=== PATIENT | male | born 1960 | race Caucasian/White ===

== ENCOUNTER → 2016-06-10 | Outpatient (CLI) | payer OTHER ==
[~2016-06-10] MED LIST: ALBU18002 INH; ALBU2SYP9; ASPCH81X PO; ASPEC81 PO; ASPI81TA28 PO; ATV/1 PO; DRGTP12; FENT75DI2; IBUP-1459 PO; NICO14DI9 TOP; ONDA8TAB12 PO; ONDA8TAB6 PO; Proair INH; SERT25TA PO; SPRIN INH; SPRIN/30 INH; fentanyl patch
--- NOTE | 2016-06-10 13:06 | DIAGNOSTIC IMAGING REPORT ---
PET/CT SKULL-THIGH CLINICAL HISTORY: Glottic neoplasm COMPARISON STUDY: CT scan of the neck dated 05/20/2016 FINDINGS: Within the neck, there is indwelling tracheostomy tube. There is intensely FDG avid glottic mass with an SUV maximum of 14.1. This involves the right vocal cord and crosses the midline. There is superior extent to the level of the right piriform sinus. The mass is estimated to measure approximately 3.5 cm transversely. There are no FDG avid cervical lymph nodes. There is a nonpathologically enlarged right paratracheal lymph node with SUV maximum of 2.1. There is pulmonary emphysema. There are bilateral FDG avid pulmonary airspace opacities suspicious for pneumonia. Wispy airspace opacities are also present within the lingula right middle lobe and right upper lobe. There are no FDG avid hepatic masses. There is no FDG avid adenopathy within the abdomen or pelvis. There is physiologic urinary tract and bowel activity. IMPRESSION: 1. Large glottic mass. This involves the right vocal cord with extension across the midline. There is also extension superiorly to the level the right piriform sinus. The mass intensely FDG avid with SUV maximum of 14.1. This is consistent with the patient's known primary malignancy 2. No definite evidence of pathologic adenopathy 3. Bilateral pulmonary airspace opacities. These are FDG avid. The appearance is suggestive of a bilateral pneumonia Electronically signed by: Ayden Flanagan M.D. 06/10/2016 1:05 PM Dictated Date/Time: 06/10/2016 12:53 PM
== END | disposition home or self-care (01) ==
LOC: C.PET 09:33
PROVIDERS: ATTEND Radiology Radiation Oncology
DX: C32.0 Malignant neoplasm of glottis (principal)

== ENCOUNTER → 2016-06-19 | Day surgery (SDC) | payer OTHER ==
[~2016-06-19] VITALS: Ht 175.3 cm; Wt 63.6 kg
[~2016-06-19] MED LIST changes: -ASPEC81 PO; +CEFAZOLIN 1000MG/55 ML D5W IV SCH; +CEFAZOLIN IV 1,000 MG in DEXTROSE 5% 50ML 50 ML IV SCH; +FENTANYL CITRATE INJ 50 MCG/1 ML 2 ML VIAL ONE; +LIDOCAINE HCL 2% 2 ML VIAL (20MG/ML) ONE; +MIDAZOLAM HCL 1 MG/ML 2ML VIAL ONE; +PROPOFOL IV EMULSION 10 MG/ML 20 ML VIAL IV ONE; -Proair INH; +SODIUM CHLORIDE 0.9% 500ML 500 ML IV ONE; -SPRIN INH
[2016-06-19 10:40] VITALS: Ht 175.3 cm; Wt 63.6 kg
--- NOTE | 2016-06-19 10:52 | Endo History and Physical ---
History & Physical Date of Service: Jun 19, 2016. 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 Past Surgical History Hx Cardiac Surgery: No Hx Internal Defibrillator: No Hx Pacemaker: No Hx Abdominal Surgery: Yes (APPY) Hx of Implantable Prosthesis: No Hx Post-Op Nausea and Vomiting: No Hx Cancer Surgery: No Hx Thoracic Surgery: No Hx Orthopedic: No Hx Urinary Tract Surgery: No Family History Colon CA Social History Smoking Status: Heavy Tobacco Smoker Hx Substance Use: No Hx Alcohol Use: Yes (8-10 beers/day>HAS NOT HAD ANY SINCE 05/20/2016) Allergies Coded Allergies: No Known Allergies (Unverified , 06/13/16) Current Medications Reported Home Medications Medications Dose Route/Sig Max Daily Dose Days Date Category Ativan (Lorazepam) 1 Mg Tab 1 Mg PO DIRECTED PRN 06/13/16 Reported Proair Respiclick (Albuterol Sulfate) 108 Mcg/Act Aer 1-2 Puff INH Q4H PRN 06/13/16 Reported Aspirin Chewable (Aspirin) 81 Mg Chew 81 Mg PO QAM 06/13/16 Reported Spiriva Handihaler (Tiotropium [place]) 30 Puff/540 Mcg Aerp 1 Cap INH QAM 06/13/16 Reported Nicotine 14 Mg/24 Hr Dis 1 Patch TOP DAILY 28 06/13/16 Reported Vital Signs Weight (Kilograms): 63.64 Height (Feet): 5 Height (Inches): 9 Physical Exam General Appearance: no apparent distress Respiratory/Chest: Auscultation: breath sounds normal (with some rhonchi) Cardiovascular: Heart Auscultation: RRR Abdomen: Inspection & Palpation: soft, no masses Assessment and Plan stable for EGD with possible PEG
--- NOTE | 2016-06-19 12:01 | Discharge Instructions ---
Endoscopy Patient Instructions Date / Procedure(s) Performed Jun 19, 2016. EGD Allergy Information Coded Allergies: No Known Allergies (Unverified , 06/13/16) Discharge Date / Findings Jun 19, 2016. S/P PEG placement. Patient will contact nutrition for tube feed instructions. Patient will follow up with Papo Encarnacion to check PEG site in about a week, sooner if need be. Provider Instructions Activity Restrictions - No exercising or heavy lifting for 24 hours. - Do not drink alcohol the day of the procedure. - Do not drive a car or operate machinery until the day after the procedure. - Do not make any important decisions or sign important papers in 24 hours after the procedure. Following Day: - Return to full activity which may include returning to work/school. Diet Start your diet with liquids and light foods (jello, soup, juice, toast). Then eat your usual diet if not nauseated. Treatment For Common After Affects For mild abdominal pain, bloating, or excessive gas: - Rest - Eat lightly - Lie on right side Follow-Up Information Follow-up with Dr. Tera Floyd as scheduled Anesthesia Information What You Should Know You have had a procedure that required some medicine to reduce anxiety and discomfort. This treatment is called moderate sedation. After receiving the treatment, you may be sleepy, but you will be able to breathe on your own. The effects of the treatment may last for several hours. Follow these instructions along with Activity/Diet recommendations noted above: * Do NOT do anything where dizziness or clumsiness would be dangerous. * Rest quietly at home today, then you can be up and about tomorrow. * Have a responsible person stay with you the rest of today. * You may have had an I.V. today. If so, you may take the dressing off later today. Recommendations Call your doctor if: * Trouble breathing * Continuous vomiting for more than 24 hours * Temperature above 101 degrees * Severe abdominal pain or bloating * Pain not relieved by pain medicine ordered * There is increased drainage or redness from any incision * A large amount of rectal bleeding greater than 2-3 tablespoons. (If you had a polyp/s removed or have hemorrhoids, a small amount of blood - from the rectum is to be expected.) * You have any unanswered questions or concerns. IN THE EVENT OF A SERIOUS EMERGENCY, GO TO THE NEAREST EMERGENCY ROOM Your discharge instructions were prepared by provider Valdez Lima. Patient Instructions Signature Page Gordo Lucas Patient (or Guardian) Signature/Date: I have read and understand the instructions given to me by my caregivers. Caregiver/RN/Doctor Signature/Date: The above-named patient and/or guardian has received patient instructions on this date. + Original Patient Signature Page (only) stays with chart. Please make copy for patient.
--- NOTE | 2016-06-19 12:03 | GI REPORT ---
Procedure Date: 06/19/2016 11:18 AM Procedure: Upper GI endoscopy Indications: Dysphagia, Place PEG due to feeding difficulties secondary to laryngeal tumor Medicines: See the Anesthesia note for documentation of the administered medications, Ancef 1000 mg IV Complications: No immediate complications. Estimated Blood Loss: Estimated blood loss was minimal. Procedure: Pre-Anesthesia Assessment: - Prior to the procedure, a History and Physical was performed, and patient medications, allergies and sensitivities were reviewed. The patient's tolerance of previous anesthesia was reviewed. - The risks and benefits of the procedure and the sedation options and risks were discussed with the patient. All questions were answered and informed consent was obtained. - Patient identification and proposed procedure were verified prior to the procedure by the physician and the nurse. The procedure was verified in the pre-procedure area. - Pre-procedure physical examination revealed no contraindications to sedation. - After reviewing the risks and benefits, the patient was deemed in satisfactory condition to undergo the procedure. After obtaining informed consent, the endoscope was passed under direct vision. Throughout the procedure, the patient's blood pressure, pulse, and oxygen saturations were monitored continuously. The scope was introduced through the mouth, and advanced to the third part of duodenum. The upper GI endoscopy was accomplished without difficulty. The patient tolerated the procedure well. Findings: The esophagus was normal. The entire examined stomach was normal. The patient was placed in the supine position for PEG placement. The stomach was insufflated to appose gastric and abdominal holman. With the assistance of REUBEN Jesus, a site was located in the body of the stomach with excellent transillumination and manual external pressure for placement. The abdominal wall was marked and prepped in a sterile manner. The area was anesthetized with 3 mL of 1% lidocaine. The trocar needle was introduced through the abdominal wall and into the stomach under direct endoscopic view. A snare was introduced through the endoscope and opened in the gastric lumen. The guide wire was passed through the trocar and into the open snare. The snare was closed around the guide wire. The endoscope and snare were removed, pulling the wire out through the mouth. A skin incision was made at the site of needle insertion. The externally removable 20 Fr Nilesh-Cook gastrostomy tube was lubricated. The G-tube was tied to the guide wire and pulled through the mouth and into the stomach. The trocar needle was removed, and the gastrostomy tube was pulled out from the stomach through the skin. The external bumper was attached to the gastrostomy tube, and the tube was cut to remove the guide wire. The final position of the gastrostomy tube was confirmed by skin marking noted to be 2.5 cm at the external bumper. The final tension and compression of the abdominal wall by the PEG tube and external bumper were checked and revealed that the bumper was moderately tight and mildly deforming the skin. The feeding tube was capped, and the tube site cleaned and dressed. Estimated blood loss was minimal. The examined duodenum was normal. The cardia and gastric fundus were normal on retroflexion. Impression: - Normal esophagus. - Normal stomach. - Normal examined duodenum. - An externally removable 20 F PEG placement was successfully completed. - No specimens collected. Recommendation: - Please follow the post-PEG recommendations including: NPO for 4 hours than clears till tomorrow am than advance food and medications per primary care provider or nutrition, clean site with soap and water daily and dry thoroughly and may use PEG tomorrow for feedings. - Follow up with Papo Encarnacion to check PEG site in about 1 week. Valdez Lima M.D. Valdez Lima MD 06/19/2016 12:02:55 PM This report has been signed electronically. Note Initiated On: 06/19/2016 11:18 AM
[2016-06-19 12:33] VITALS: BP 128/82; PULSE 64; O2SAT 96
--- NOTE | 2016-06-19 13:31 | Anesthesiology Progress Note ---
Anesthesia Post Op Note Date & Time Jun 19, 2016 at 13:30 Vital Signs Pain Intensity: 3 Vital Signs Past 12 Hours Date Time Temp Pulse Resp B/P Pulse Ox O2 Delivery O2 Flow Rate FiO2 06/19/16 12:33 64 20 128/82 96 Room Air 06/19/16 12:20 62 20 126/80 100 Room Air 06/19/16 12:05 64 20 130/75 100 Nasal Cannula 2 06/19/16 10:55 36.6 62 20 129/77 98 Room Air Notes Mental Status: alert / awake / arousable, participated in evaluation Pt Amnestic to Procedure: Yes Nausea / Vomiting: adequately controlled Pain: adequately controlled Airway Patency, RR, SpO2: stable & adequate BP & HR: stable & adequate Hydration State: stable & adequate Anesthetic Complications: no major complications apparent
== END | disposition home or self-care (01) ==
LOC: C.GI 10:21
PROVIDERS: ATTEND Internal Medicine Gastroenterology
DX: R13.10 Dysphagia, unspecified (principal); C32.9 Malignant neoplasm of larynx, unspecified; R63.3 Feeding difficulties; Z90.49 Acquired absence of other specified parts of digestive tract; Z80.0 Family history of malignant neoplasm of digestive organs; F17.210 Nicotine dependence, cigarettes, uncomplicated

== ENCOUNTER → 2016-07-03 | Outpatient (CLI) | payer OTHER ==
[~2016-07-03] MED LIST changes: -CEFAZOLIN 1000MG/55 ML D5W IV SCH; -CEFAZOLIN IV 1,000 MG in DEXTROSE 5% 50ML 50 ML IV SCH; -FENTANYL CITRATE INJ 50 MCG/1 ML 2 ML VIAL ONE; -LIDOCAINE HCL 2% 2 ML VIAL (20MG/ML) ONE; -MIDAZOLAM HCL 1 MG/ML 2ML VIAL ONE; -PROPOFOL IV EMULSION 10 MG/ML 20 ML VIAL IV ONE; -SODIUM CHLORIDE 0.9% 500ML 500 ML IV ONE
--- NOTE | 2016-07-03 14:26 | DIAGNOSTIC IMAGING REPORT ---
BILATERAL CAROTID DOPPLER STUDY HISTORY: Neoplasm MALIGNANT NEOPLASM GLOTTIS COMPARISON: None. TECHNIQUE: Real-time, grayscale, and color Doppler sonography of the carotid arteries was performed. Imaging reviewed in the transverse and longitudinal planes. All measurements were calculated based on NASCET criteria. FINDINGS: Antegrade flow is seen in the bilateral vertebral arteries. The brachial pressures are hemodynamically similar. Mild plaque formation bilaterally The peak systolic velocity within the right ICA is 103. The right systolic ratio is 0.89. The peak systolic velocity within the left ICA is 117. The left systolic ratio is 0.98. IMPRESSION: No hemodynamically significant stenosis seen within the carotid arteries. Mild plaque dimension Electronically signed by: Aime Fu M.D. 07/03/2016 2:24 PM Dictated Date/Time: 07/03/2016 2:23 PM
== END | disposition home or self-care (01) ==
LOC: C.ULTR 13:37
PROVIDERS: ATTEND Radiology Radiation Oncology
DX: C32.0 Malignant neoplasm of glottis (principal)

== ENCOUNTER → 2016-09-11 | Outpatient (CLI) | payer OTHER ==
[~2016-09-11] MED LIST changes: -ALBU18002 INH; -ASPCH81X PO; -FENT75DI2; -NICO14DI9 TOP; -ONDA8TAB12 PO; -SPRIN/30 INH; -fentanyl patch
[2016-09-11 14:33] VITALS: BP 119/67; PULSE 68; TEMP 36.7; O2SAT 99
--- NOTE | 2016-09-11 15:48 | Radiation Oncology Follow-Up ---
Radiation Oncology Follow-Up Date of Visit Sep 11, 2016. 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 Chemotherapy comprised of Cisplatin Last Edited By: Randa Brock on Aug 23, 2016 11:26 (Randa Brock PA-C) History of Present Illness Mr. Lucas is a 55-year-old gentleman who presented with a long-standing history of throat discomfort and hoarseness of voice. More recently, the patient was seen by a primary care doctor who recommended urgent evaluation and had the patient go to the emergency room at [facility]. The patient had a CT neck on 05/20/2015 which revealed a large right vocal cord mass with extension across the midline and superior extension of the right piriform sinus and subglottic extension and involvement of the thyroid cartilage. No lymphadenopathy. The patient also did have a CT thorax which did show a 11 mm left lower lobe bronchial filling defect most likely representing a mucous plug however neoplasm could appear similar. Dr. Jarvis Garcia from ENT did evaluate the patient and did perform a NPL at bedside which revealed "The flexible fiberoptic laryngoscope was passed through the right nostril. I was easily able to see a massive lesion involving the supraglottic larynx on the right extending deep into the subglottic area. This lesion crossed the midline. There was a very narrow glottic chink. The right vocal cord was fixed. The left vocal cord was mobile." Dr. Garcia is taking the patient to the operating room for placement of elective tracheostomy to protect his airway and will also perform a direct laryngoscopy with biopsy to confirm the diagnosis of head and neck cancer. We are now seeing the patient in consultation to discuss the role of radiation therapy. Overall, the patient is relatively comfortable. He does state he does have a very sore throat. He denies any significant dysphagia. He denies any hemoptysis. He does have some difficulty with the quality of his voice and has been getting more progressively worse. He states she's had about a 15 and 30 pound weight loss over the last several months. He has no other complaints at this point. He underwent a tracheotomy, laryngoscopy and biopsies 05/22/2016. This confirmed the diagnosis of squamous cell carcinoma. He was seen by medical oncology. Decision was to treat with combined radiation and chemotherapy. He then returned to our office And underwent a CT simulation. His radiation was completed 08/15/2016 he received 7000 cGy. The chemotherapy was comprised of cisplatin. (Randa Brock PA-C) Interim History Following the completion of the radiation therapy and chemotherapy he did develop GI symptoms. This caused nausea and vomiting. He had node diarrhea. He did have some weight loss. This persisted over 2 weeks. He had no fever or chills. He continues to have dysphagia. Pain level is 3. He is being followed by speech therapy and has now received a device to use for speech. He is to increase the use of the device by 15 minutes every day. Speech therapy did request home health speech therapy to help assist with using the device. He continues to have difficulty with swallowing liquids he's been instructed to use thickened. He did admit to drinking water without the thickened and did have difficulty. Arrangements of continued for delivery of the nutrition and he uses a PEG tube. His appetite is returning but he continues to have altered taste. He has slight nausea without vomiting. (Randa Brock PA-C) Allergies Coded Allergies: No Known Allergies (Verified , 06/19/16) Home Medications Scheduled Aspirin (Aspirin Ec), 81 MG PO DAILY Sertraline (Zoloft), 1 TAB PO DAILY Scheduled PRN Ibuprofen (Motrin), 400 MG PO Q6H PRN for Pain Miscellaneous Medications Albuterol Sulf (Ventolin) Review of Systems Gastrointestinal: Symptoms: WNL GI Comments: slight nausea at times Oral: Symptoms: No Problems, Scant Saliva/Dry Mouth Other Oral Symptoms: speaking valve placed today, drinks but does not eat Respiratory: Symptoms: WNL, Moist Cough, Productive Cough Sputum Character: Clear sputum Other Respiratory: Coughs out trach to clear throat Urinary: Symptoms: WNL Skin: Symptoms: No Problems Other Skin Symptoms: States sore where trach rubs (Randa Brock PA-C) Physical Exam Vital Signs Date Time Temp Pulse Resp B/P Pulse Ox O2 Delivery O2 Flow Rate FiO2 09/11/16 14:33 36.7 68 16 119/67 99 Fatigue: None General Appearance: no apparent distress Eyes: normal inspection, EOMI ENT: normal ENT inspection, hearing grossly normal Neck: no adenopathy, thyroid normal, + pertinent finding (trach is in place the skin changes from radiation have resolved other than hyperpigmentation) Respiratory/Chest: lungs clear, no respiratory distress, no accessory muscle use Cardiovascular: regular rate, rhythm, no gallop, no murmur Neurologic/Psychiatric: no motor/sensory deficits, alert, normal mood/affect Skin: warm/dry (Randa Brock PA-C) Laboratory Studies Test 06/26/16 15:33 07/08/16 10:15 07/29/16 11:05 08/07/16 14:38 Thyroid Stimulating Hormone (TSH) 1.510 uIu/ml (0.300-4.500) Magnesium Level 1.8 mg/dl (1.8-2.4) 2.7 mg/dl (1.8-2.4) White Blood Count 2.98 K/uL (4.8-10.8) 5.24 K/uL (4.8-10.8) Red Blood Count 2.93 M/uL (4.7-6.1) 2.87 M/uL (4.7-6.1) Hemoglobin 9.9 g/dL (14.0-18.0) 9.1 g/dL (14.0-18.0) Hematocrit 27.4 % (42-52) 25.6 % (42-52) Mean Corpuscular Volume 93.5 fL (80-100) 89.2 fL (80-100) Mean Corpuscular Hemoglobin 33.8 pg (25-34) 31.7 pg (25-34) Mean Corpuscular Hemoglobin Concent 36.1 g/dl (32-36) 35.5 g/dl (32-36) Platelet Count 212 K/uL (130-400) 169 K/uL (130-400) Mean Platelet Volume 8.3 fL (7.4-10.4) 8.4 fL (7.4-10.4) Neutrophils (%) (Auto) 59.5 % 74.9 % Lymphocytes (%) (Auto) 25.8 % 18.9 % Monocytes (%) (Auto) 9.7 % 5.0 % Eosinophils (%) (Auto) 4.0 % 0.4 % Basophils (%) (Auto) 0.7 % 0.6 % Neutrophils # (Auto) 1.77 K/uL (1.4-6.5) 3.93 K/uL (1.4-6.5) Lymphocytes # (Auto) 0.77 K/uL (1.2-3.4) 0.99 K/uL (1.2-3.4) Monocytes # (Auto) 0.29 K/uL (0.11-0.59) 0.26 K/uL (0.11-0.59) Eosinophils # (Auto) 0.12 K/uL (0-0.5) 0.02 K/uL (0-0.5) Basophils # (Auto) 0.02 K/uL (0-0.2) 0.03 K/uL (0-0.2) RDW Standard Deviation 44.8 fL (36.4-46.3) 44.0 fL (36.4-46.3) RDW Coefficient of Variation 14.0 % (11.5-14.5) 14.2 % (11.5-14.5) Immature Granulocyte % (Auto) 0.3 % 0.2 % Immature Granulocyte # (Auto) 0.01 K/uL (0.00-0.02) 0.01 K/uL (0.00-0.02) Sodium Level 140 mmol/L (136-145) 139 mmol/L (136-145) Potassium Level 3.6 mmol/L (3.5-5.1) 4.0 mmol/L (3.5-5.1) Chloride Level 102 mmol/L (98-107) 101 mmol/L (98-107) Carbon Dioxide Level 29 mmol/L (21-32) 28 mmol/L (21-32) Anion Gap 9.0 mmol/L (3-11) 10.0 mmol/L (3-11) Blood Urea Nitrogen 28 mg/dl (7-18) 67 mg/dl (7-18) Creatinine 1.20 mg/dl (0.60-1.40) 3.70 mg/dl (0.60-1.40) Estimated GFR () 77.9 20.0 Estimated GFR (Non- 67.2 17.2 BUN/Creatinine Ratio 23.4 (10-20) 18.2 (10-20) Random Glucose 78 mg/dl (70-99) 91 mg/dl (70-99) Calcium Level 8.8 mg/dl (8.5-10.1) 8.9 mg/dl (8.5-10.1) Total Bilirubin 0.2 mg/dl (0.2-1) 0.2 mg/dl (0.2-1) Aspartate Amino Transferase (AST) 11 U/L (15-37) 18 U/L (15-37) Alanine Aminotransferase (ALT) 19 U/L (12-78) 26 U/L (12-78) Alkaline Phosphatase 58 U/L (45-117) 73 U/L (45-117) Total Protein 7.4 gm/dl (6.4-8.2) 7.4 gm/dl (6.4-8.2) Albumin 3.8 gm/dl (3.4-5.0) 3.7 gm/dl (3.4-5.0) Globulin 3.6 gm/dl (2.5-4.0) 3.7 gm/dl (2.5-4.0) Albumin/Globulin Ratio 1.1 (0.9-2) 1.0 (0.9-2) (Randa Brcok PA-C) Assessment & Plan Plan: The patient is also seen today by Dr. De Los Santos. I spoke with speech therapist who has recommended that he have home health speech therapy. Neli Najera from patient navigation assisted in discussing with [facility]. The prescription will be written and she will send us in so that he may have home health speech therapy. He will be using his speech device and increasing the use of the device by 15 minutes each day. He will be following up with Dr. Garcia in ENT. Recheck scanning and laboratory studies per medical oncology. We asked him to return to our office in 3 months. (Randa Brock PA-C) I agree with note created by Randa Brock PA-C. I reviewed the patient's chart and information with her. I have examined and evaluated the patient. I reviewed relevant clinical information and answered the patient's and/or family' s questions. (Veeral. De Los Santos MD) Total Time In Follow-Up I spent 20 minutes speaking to the patient performing examination. I spent 15 minutes reviewing information in completing this note. (Randa Brock PA-C) I spent 15 minutes examining and counseling the patient. (Veeral. De Los Santos MD) Copy To Phill Dawkins MD; Jarvis Garcia M.D.; Tyler Floyd MD; Jax Field D.O.
== END | disposition home or self-care (01) ==
LOC: C.ONC 14:20
PROVIDERS: ATTEND Physician Assistant Medical
DX: Z08 Encounter for follow-up examination after completed treatment for malignant neoplasm (principal); Z92.3 Personal history of irradiation; Z85.89 Personal history of malignant neoplasm of other organs and systems

== ENCOUNTER → 2016-10-15 | Outpatient (CLI) | payer OTHER ==
[~2016-10-15] MED LIST changes: -ATV/1 PO; -DRGTP12; -ONDA8TAB6 PO
--- NOTE | 2016-10-15 14:40 | DIAGNOSTIC IMAGING REPORT ---
VIDEO SWALLOW HISTORY: HEAD AND NECK CA C32.0 TECHNIQUE: Video fluoroscopic evaluation of swallowing was performed in the AP and lateral projections by the speech pathology staff. The patient is fed nectar-thick and thin liquid barium, a barium coated wafer, and barium pudding. FLUOROSCOPY TIME: 1.9 minutes. A cine loop was submitted.. COMPARISON STUDY: None. FINDINGS: There is normal hyoid excursion and epiglottic deflection. No significant penetration or aspiration identified. Swallowing function is within normal limits. There is mild cricopharyngeal dysfunction. Mild esophageal dysmotility. IMPRESSION: 1. No aspiration identified. Mild cricopharyngeal dysfunction. 2. Please see the speech pathologist report for detailed findings and recommendations. Electronically signed by: Simone García M.D. 10/15/2016 2:39 PM Dictated Date/Time: 10/15/2016 2:37 PM
--- NOTE | 2016-10-15 16:17 | SWALLOWING EVALUATION ---
HISTORY: This 56 year-old man, from home, was referred for a VFSS at [facility] secondary to being on PEG Tube feeding since laryngeal lesion was found and operation with chemo and radiation May 2016. He states that he is currently seeing a home health PROGRAM DIRECTOR-Ester Polo who has been working with p.o. intake and he is tolerating nectar thick liquids with no difficulty. Pt. reports that he con not consume significant amounts of food secondary to unbearable metallic taste from the chemo and radiation treatments. Currently the patient's diet level is NPO and allowance for soft items with nectar thick liquids however pt. reports that he has been tolerating thins since he does not like the thickened liquids. PROCEDURE: The patient was seen in the Radiology Department of [facility] for the VFSS. Cursory examination of the oral cavity revealed adequate dentition. Movement of the articulators was WNL. Pt. presented with Trach. He had Passy Bethel Valve however chose to occlude instead of using it throughout the study. The patient was seated in a chair and was viewed in both the Anterior-Posterior (A-P) and Lateral planes. Volitional phonation exercises completed in the A-P plane revealed bilateral vocal fold movement and vocal intensity within functional limits. In the lateral plane, the patient was given the following barium-infused boluses: 1 tsp thin barium with oral hold 1x, self presented single cup swallow-thin barium 1x, self presented serial cup swallow 1x. 1 tsp nectar thick barium with oral hold 1x, self presented single cup swallow- nectar thick barium 1x, self presented serial cup swallows 1x. 1 tsp barium pudding-self presented 1x. Cracker with barium paste 1x. In the A-P view, pt was given 1tsp barium pudding with esophageal scan. RESULTS: Oral Phase: Pt. had no labial escape of any food or liquid items presented. Pt. demonstrated a cohesive bolus between tongue and palatal seal. Timely and efficient chewing and mashing was observed with all consistencies as well as brisk tongue motion and complete oral clearance. Initiation of pharyngeal swallow began with bolus head at posterior angle of hyoid excursion. *Overall WFL for oral phase of swallow. Pharyngeal Phase: Soft Palate Elevation was complete for all boluses. Laryngeal elevation was WFL demonstrating complete movement of thyroid cartilage with complete approximation of arytenoids to epiglottic base. Complete Anterior Hyoid excursion was observed. Epiglottic inversion occurred with each item presented. Laryngeal Vestibular closure was complete and no air or barium noted in laryngeal vestibule. Tongue base retraction was noted with all consistencies and tongue base made effective contact with posterior pharyngeal wall throughout study. No pharyngeal residue was observed. NO penetration and NO aspiration was observed during this study. *Overall WFL for pharyngeal phase of the swallow. Esophageal Phase: Opening and closing of the UES was timely and efficient. Upon esophageal scan, PROGRAM DIRECTOR noted esophageal dysmotility with the food items presented. Given pt.s current status of completing PEG tube feedings this is not likely a significant issue however once/if pt. begins to increase p.o. intake he will likely need a GI consult to further evaluate this issue. SUMMARY/RECOMMENDATIONS: Overall pt. presented as WFL for oral pharyngeal stage of the swallow. Recommendin. Allowance for any desired p.o. items 2.Continuation of PEG tube feedings secondary to decreased appetite secondary to metallic taste in mouth from Chemo Therapy. 3. Written instructions given to Pt. for "slippery" foods 4. When/If pt. moves toward more stable p.o. intake that can nutritionally support his caloric needs, GI consult will be needed to further evaluate esophageal dysfunction. All results and recommendations were discussed with the pt. at length and written materials/instructions given to pt. Thank you for referral of this patient. Please contact me at if any additional information is needed.
== END | disposition home or self-care (01) ==
LOC: C.RAD 13:50
PROVIDERS: ATTEND Physician Assistant Medical
DX: C32.0 Malignant neoplasm of glottis (principal)

== ENCOUNTER → 2016-11-27 | Outpatient (CLI) | payer OTHER ==
[~2016-11-27] MED LIST changes: +OPTIRAY 320 IV PRN
[2016-11-27 13:28] LABS: BASO % 0.4 %; BASO ABS # 0.03 K/uL (0-0.2); EOS % 0.8 %; HEMATOCRIT 26.6 % (42-52); IG% 0.9 %; LYMPH % 10.6 %; LYMPH ABS # 0.82 K/uL (1.2-3.4); MEAN CORPUSCULAR HEMOGLOBIN 31.8 pg (25-34); MEAN PLATELET VOLUME 7.8 fL (7.4-10.4); MONO % 10.4 %; NEUT % 76.9 %; PLATELET COUNT 328 K/uL (130-400); WHITE BLOOD COUNT 7.72 K/uL (4.8-10.8)
[2016-11-27 13:29] LABS: MEAN CORPUSCULAR HGB CONC 33.5 g/dl (32-36)
[2016-11-27 13:50] LABS: COMPLETE YES
[2016-11-27 14:00] LABS: ALB/GLOB RATIO 1.1 (0.9-2); ALKALINE PHOSPHATASE 50 U/L (45-117); ALT/SGPT 22 U/L (12-78); AST/SGOT 20 U/L (15-37); BLOOD UREA NITROGEN 31 mg/dl (7-18); BUN/CREATININE RATIO 25.6 (10-20); CALCIUM 9.5 mg/dl (8.5-10.1); CARBON DIOXIDE 26 mmol/L (21-32); CHLORIDE 99 mmol/L (98-107); GLUCOSE 76 mg/dl (70-99); POTASSIUM 4.4 mmol/L (3.5-5.1); SODIUM 133 mmol/L (136-145)
--- NOTE | 2016-11-27 14:26 | DIAGNOSTIC IMAGING REPORT ---
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 COMPARISON STUDY: CT scan of the neck dated 05/20/2016. PET/CT dated 06/10/2016. TECHNIQUE: Following the IV administration of 94 cc of Optiray 320, CT scan of the soft tissues of the neck was performed from the skull base to the upper chest. Images are reviewed in the axial, sagittal, and coronal planes. IV contrast was administered without complication. CT DOSE: 529.43 mGy.cm FINDINGS: Pharynx: The nasopharynx and oropharynx are normal in appearance. There is marked edema identified involving the supraglottic larynx. There is ill-defined soft tissue at the site of the previously characterized mass lesion. The mass lesion itself is difficult to discretely visualize/measure but has likely decreased in size from the 05/20/2016 examination. There is marked narrowing of the supraglottic airway. The remainder of the airway appears clear. A tracheostomy is noted. The vocal cords are markedly edematous, L assessed. There is diffuse infiltration of the parapharyngeal fat bilaterally. Edema is also seen within the surrounding subcutaneous soft tissues. Mild retropharyngeal soft tissue edema is also seen. There is mild edema of the epiglottis. Lymphadenopathy: No pathologically enlarged cervical lymph nodes are seen. Thyroid: Normal in size and attenuation. A central defect in the isthmus is noted at the tracheostomy site. Salivary glands: The parotid and submandibular glands are within normal limits. Brain parenchyma: The visualized brain parenchyma at the skull base is normal in appearance. Vascular structures: The internal carotid arteries and jugular veins are widely patent. The aortic arch demonstrates 4-vessel variant anatomy. Skeletal structures: The skeletal structures are osteopenic. The patient is edentulous. Imaged portions of the calvarium at the skull base are within normal limits. The cervical spine appears intact noting mild spondylotic change. No lytic or blastic lesions are seen. Sinuses and mastoids: The visualized paranasal sinuses are clear. The mastoid air cells are well pneumatized. Orbits: The bony orbits are intact as visualized. Orbital contents are normal in appearance. Upper chest: Emphysema is noted at the lung apices. There is biapical scarring. No upper lobe pulmonary lesions are identified. A tracheostomy is in place. IMPRESSION: 1. There is marked edema and soft tissue infiltration identified in the right supraglottic larynx. The mass lesion seen on 05/20/2016 is not well visualized and likely decreased in size from that time. 2. There is marked parapharyngeal edema, mild retropharyngeal edema, as well as overlying dermal thickening and soft tissue edema. This is likely related to post radiation change. 3. There is significant narrowing of the supraglottic airway. A tracheostomy is new from previous. 4. No pathologically enlarged cervical lymph nodes are identified 5. Emphysema. 6. Additional changes as above. Electronically signed by: Yuniel Zuniga M.D. 11/27/2016 2:25 PM Dictated Date/Time: 11/27/2016 2:12 PM
== END | disposition home or self-care (01) ==
LOC: C.CTS 12:55
PROVIDERS: ATTEND Internal Medicine Hematology & Oncology
DX: C32.8 Malignant neoplasm of overlapping sites of larynx (principal); R60.0 Localized edema; Z93.0 Tracheostomy status; J43.9 Emphysema, unspecified

== ENCOUNTER → 2017-03-26 | Outpatient (CLI) | payer OTHER ==
[~2017-03-26] MED LIST changes: -OPTIRAY 320 IV PRN
[2017-03-26 15:24] VITALS: BP 152/80; PULSE 66; TEMP 36.9; O2SAT 99
--- NOTE | 2017-03-26 16:19 | Radiation Oncology Follow-Up ---
Radiation Oncology Follow-Up Date of Visit Mar 26, 2017. 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 Chemotherapy comprised of Cisplatin Last Edited By: Randa Brock on Aug 23, 2016 11:26 History of Present Illness Mr. Lucas presented with a long-standing history of throat discomfort and hoarseness of voice. More recently, the patient was seen by a primary care doctor who recommended urgent evaluation and had the patient go to the emergency room at [facility]. The patient had a CT neck on 05/20/2015 which revealed a large right vocal cord mass with extension across the midline and superior extension of the right piriform sinus and subglottic extension and involvement of the thyroid cartilage. No lymphadenopathy. The patient also did have a CT thorax which did show a 11 mm left lower lobe bronchial filling defect most likely representing a mucous plug however neoplasm could appear similar. Dr. Jarvis Garcia from ENT did evaluate the patient and did perform a NPL at bedside which revealed "The flexible fiberoptic laryngoscope was passed through the right nostril. I was easily able to see a massive lesion involving the supraglottic larynx on the right extending deep into the subglottic area. This lesion crossed the midline. There was a very narrow glottic chink. The right vocal cord was fixed. The left vocal cord was mobile." Dr. Garcia is taking the patient to the operating room for placement of elective tracheostomy to protect his airway and will also perform a direct laryngoscopy with biopsy to confirm the diagnosis of head and neck cancer. We are now seeing the patient in consultation to discuss the role of radiation therapy. Overall, the patient is relatively comfortable. He does state he does have a very sore throat. He denies any significant dysphagia. He denies any hemoptysis. He does have some difficulty with the quality of his voice and has been getting more progressively worse. He states she's had about a 15 and 30 pound weight loss over the last several months. He has no other complaints at this point. He underwent a tracheotomy, laryngoscopy and biopsies 05/22/2016. This confirmed the diagnosis of squamous cell carcinoma. He was seen by medical oncology. Decision was to treat with combined radiation and chemotherapy. He then returned to our office And underwent a CT simulation. His radiation was completed 08/15/2016 he received 7000 cGy. The chemotherapy was comprised of cisplatin. Interim History His appetite is steadily been improving. He is taking more nutrition by mouth. He only uses 1-2 cans of nutrition per day via PEG tube. He has minimal discomfort of the neck and throat. Previously he had been taking Advil for pain. He has not had to take any Advil over the past few weeks. He is followed in ENT and had an NPL examination 1 month ago. He had a recheck CT of the neck 11/27/2016. This showed marked edema and soft tissue swelling in the right supraglottic larrynx. The mass lesion that was seen 05/20/2016 is not well-visualized and likely decreased in size. There are post radiation changes. Tracheostomy is noted. Allergies Coded Allergies: No Known Allergies (Verified , 06/19/16) Home Medications Scheduled Sertraline (Zoloft), 1 TAB PO DAILY Scheduled PRN Albuterol Sulf (Ventolin), for prn Ibuprofen (Motrin), 400 MG PO Q6H PRN for Pain Review of Systems Gastrointestinal: Symptoms: WNL Oral: Other Oral Symptoms: soreness when swallows ,trach tube inplace Respiratory: Symptoms: SOB With Exertion, Productive Cough Sputum Character: clear occ notes sm amt blood few specks Other Respiratory: trach tube in place Urinary: Symptoms: Nocturia Comments: nocturia 2-3x Skin: Symptoms: Faint Erythema Physical Exam Vital Signs Date Time Temp Pulse Resp B/P (MAP) Pulse Ox O2 Delivery O2 Flow Rate FiO2 03/26/17 15:24 36.9 66 20 152/80 99 Pain: Pain Onset: since started RT Pain Duration: intermet Patient Pain Scale: 0 - 10 Initial Pain Intensity: 5.0 Additional Comments: feels like a tooth ache Fatigue: None General Appearance: no apparent distress, + pertinent finding (tracheostomy tube in placed) Eyes: normal inspection, EOMI ENT: normal ENT inspection, hearing grossly normal, pharynx normal Neck: no adenopathy, thyroid normal Respiratory/Chest: no respiratory distress, no accessory muscle use, + wheezing (mild wheezing bilaterally) Cardiovascular: regular rate, rhythm, no gallop, no murmur Abdomen: non tender Extremities: no pedal edema Neurologic/Psychiatric: no motor/sensory deficits, alert, normal mood/affect Skin: warm/dry Laboratory Studies Test 03/26/17 15:06 White Blood Count 8.69 K/uL (4.8-10.8) Red Blood Count 3.09 M/uL (4.7-6.1) Hemoglobin 9.9 g/dL (14.0-18.0) Hematocrit 29.1 % (42-52) Mean Corpuscular Volume 94.2 fL (80-100) Mean Corpuscular Hemoglobin 32.0 pg (25-34) Mean Corpuscular Hemoglobin Concent 34.0 g/dl (32-36) Platelet Count 246 K/uL (130-400) Mean Platelet Volume 8.3 fL (7.4-10.4) Neutrophils (%) (Auto) 71.3 % Lymphocytes (%) (Auto) 11.2 % Monocytes (%) (Auto) 10.7 % Eosinophils (%) (Auto) 4.9 % Basophils (%) (Auto) 1.2 % Neutrophils # (Auto) 6.20 K/uL (1.4-6.5) Lymphocytes # (Auto) 0.97 K/uL (1.2-3.4) Monocytes # (Auto) 0.93 K/uL (0.11-0.59) Eosinophils # (Auto) 0.43 K/uL (0-0.5) Basophils # (Auto) 0.10 K/uL (0-0.2) RDW Standard Deviation 46.4 fL (36.4-46.3) RDW Coefficient of Variation 13.3 % (11.5-14.5) Immature Granulocyte % (Auto) 0.7 % Immature Granulocyte # (Auto) 0.06 K/uL (0.00-0.02) Sodium Level 134 mmol/L (136-145) Potassium Level 4.0 mmol/L (3.5-5.1) Chloride Level 102 mmol/L (98-107) Carbon Dioxide Level 26 mmol/L (21-32) Anion Gap 6.0 mmol/L (3-11) Blood Urea Nitrogen 17 mg/dl (7-18) Creatinine 1.15 mg/dl (0.60-1.40) Estimated GFR () 81.4 Estimated GFR (Non- 70.3 BUN/Creatinine Ratio 15.1 (10-20) Random Glucose 74 mg/dl (70-99) Calcium Level 9.3 mg/dl (8.5-10.1) Total Bilirubin 0.2 mg/dl (0.2-1) Aspartate Amino Transferase (AST) 21 U/L (15-37) Alanine Aminotransferase (ALT) 20 U/L (12-78) Alkaline Phosphatase 56 U/L (45-117) Total Protein 7.9 gm/dl (6.4-8.2) Albumin 4.0 gm/dl (3.4-5.0) Globulin 3.9 gm/dl (2.5-4.0) Albumin/Globulin Ratio 1.0 (0.9-2) Additional Studies Patient: RACHEL LUCAS Address1: [address] [place] [address] Rec: [id number] Address2: [place] [address] Acct ID: [id number] [facility] Zip: [place] [address] Date: 1960 Sex: M Room/Bed: Ref Phy: Tyler Floyd MD SC: C.CTS Att Phy: Jax Field D.O. Report #: [id number] Rebekah Phy: Tyler Floyd MD Test: NCKW Admit Phy: Molding Machine Operator: TONIA Interpreting Phy: Yuniel Zuniga M.D. Diagnosis: CARCINOMA OF LARYNX Ordering Phy: Jax Field D.O. Service Date: 11/27/16 Admit Date: 11/27/16 MNE: [id number] CONF: DICTATED BY: Yuniel Zuniga M.D.]] CC: Tyler Floyd MD Lieb, James V. D.O. 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 COMPARISON STUDY: CT scan of the neck dated 05/20/2016. PET/CT dated 06/10/2016. TECHNIQUE: Following the IV administration of 94 cc of Optiray 320, CT scan of the soft tissues of the neck was performed from the skull base to the upper chest. Images are reviewed in the axial, sagittal, and coronal planes. IV contrast was administered without complication. CT DOSE: 529.43 mGy.cm FINDINGS: Pharynx: The nasopharynx and oropharynx are normal in appearance. There is marked edema identified involving the supraglottic larynx. There is ill-defined soft tissue at the site of the previously characterized mass lesion. The mass lesion itself is difficult to discretely visualize/measure but has likely decreased in size from the 05/20/2016 examination. There is marked narrowing of the supraglottic airway. The remainder of the airway appears clear. A tracheostomy is noted. The vocal cords are markedly edematous, L assessed. There is diffuse infiltration of the parapharyngeal fat bilaterally. Edema is also seen within the surrounding subcutaneous soft tissues. Mild retropharyngeal soft tissue edema is also seen. There is mild edema of the epiglottis. Lymphadenopathy: No pathologically enlarged cervical lymph nodes are seen. Thyroid: Normal in size and attenuation. A central defect in the isthmus is noted at the tracheostomy site. Salivary glands: The parotid and submandibular glands are within normal limits. Brain parenchyma: The visualized brain parenchyma at the skull base is normal in appearance. Vascular structures: The internal carotid arteries and jugular veins are widely patent. The aortic arch demonstrates 4-vessel variant anatomy. Skeletal structures: The skeletal structures are osteopenic. The patient is edentulous. Imaged portions of the calvarium at the skull base are within normal limits. The cervical spine appears intact noting mild spondylotic change. No lytic or blastic lesions are seen. Sinuses and mastoids: The visualized paranasal sinuses are clear. The mastoid air cells are well pneumatized. Orbits: The bony orbits are intact as visualized. Orbital contents are normal in appearance. Upper chest: Emphysema is noted at the lung apices. There is biapical scarring. No upper lobe pulmonary lesions are identified. A tracheostomy is in place. IMPRESSION: 1. There is marked edema and soft tissue infiltration identified in the right supraglottic larynx. The mass lesion seen on 05/20/2016 is not well visualized and likely decreased in size from that time. 2. There is marked parapharyngeal edema, mild retropharyngeal edema, as well as overlying dermal thickening and soft tissue edema. This is likely related to post radiation change. 3. There is significant narrowing of the supraglottic airway. A tracheostomy is new from previous. 4. No pathologically enlarged cervical lymph nodes are identified 5. Emphysema. 6. Additional changes as above. Electronically signed by: Yuniel Zuniga M.D. Assessment & Plan Plan: The patient was seen and examined by Dr. De Los Santos. Continue regular follow- up with ENT, medical oncology, and his primary care physician. We asked him to return to our office in 6 months. He may call if he has questions or concerns in the interim. He is going to continue to increase intake by mouth. Once he has 100% of nutrition by mouth he will be able to get the PEG tube removed. Assessment & Plan (Attending) ADDENDUM: I agree with note created by Randa Brock PA-C. I reviewed the patient's chart and information with her. I have examined and evaluated the patient. I reviewed relevant clinical information and answered the patient's and /or family's questions. PAPER COUNTER Total Time In Follow-Up I spent 20 minutes speaking to the patient and performing examination. I spent 15 minutes reviewing information in completing this note. Total Time (Attending) In Follow-Up I spent 15 minutes examining and counseling the patient. PAPER COUNTER Copy To Phill Dawkins MD; Jarvis Garcia M.D.; aJx Field D.O.
== END | disposition home or self-care (01) ==
LOC: C.ONC 15:16
PROVIDERS: ATTEND Physician Assistant Medical
DX: Z08 Encounter for follow-up examination after completed treatment for malignant neoplasm (principal); Z92.3 Personal history of irradiation; Z85.89 Personal history of malignant neoplasm of other organs and systems

== ENCOUNTER → 2017-09-15 | Outpatient (CLI) | payer OTHER ==
[~2017-09-15] MED LIST changes: -ASPI81TA28 PO; +OPTIRAY 320 IV PRN
--- NOTE | 2017-09-15 14:14 | DIAGNOSTIC IMAGING REPORT ---
CHEST CT WITH CONTRAST CT DOSE: 470.62 mGy.cm HISTORY: Laryngeal cancer. TECHNIQUE: Multiaxial CT images of the chest were performed following the intravenous administration of contrast. A dose lowering technique was utilized adhering to the principles of ALARA. COMPARISON: Chest CT 05/20/2016. FINDINGS: Abnormal soft tissue within the region of the glottis which is only partially imaged on this study. This is better present on the same day neck CT. There is a tracheostomy tube which is in good position. Heterogeneous thyroid gland. There is enlarged subcarinal lymph node measuring 2.2 x 1.5 cm and enlarged right hilar lymph node measuring 1.6 cm. Borderline enlarged left hilar lymph nodes are noted. No pleural or pericardial effusions. The heart is normal in size. Normal caliber thoracic aorta. The central pulmonary arteries are patent. Partially visualized gastrostomy tube is noted. No suspicious lytic or blastic osseous lesions. No pneumothorax. Mild emphysema. The central airways are patent. There are multiple bilateral pulmonary nodules. There are greater than 20 nodules in total. Some of these nodules demonstrate central cavitation. Dominant nodule within the right upper lobe abutting the mediastinum measures 2.4 cm. IMPRESSION: 1. Multiple bilateral pulmonary nodules consistent with metastatic disease. 2. Subcarinal and right hilar lymphadenopathy consistent with metastatic disease. The left hilar lymph nodes are borderline enlarged. 3. Mild emphysema. 4. Abnormal soft tissue at the region of the glottis which is only partially imaged on this study. This is better appreciated on the same day CT. Electronically signed by: Simone García M.D. 09/15/2017 2:12 PM Dictated Date/Time: 09/15/2017 2:06 PM
--- NOTE | 2017-09-15 14:16 | DIAGNOSTIC IMAGING REPORT ---
SOFT TISSUE NECK WITH CLINICAL HISTORY: 56 years-old Male presenting with LARYNX CA. TECHNIQUE: Multidetector CT of the neck was performed after the administration of intravenous contrast. IV contrast: 93 mL of Optiray 320. A dose lowering technique was used consistent with the principles of ALARA (as low as reasonably achievable). COMPARISON: 11/27/2016. CT DOSE (mGy.cm): The estimated cumulative dose is 470.[address] chest. FINDINGS: Package Reinspector topogram: Gastrostomy tube and tracheostomy tube noted. Complete obstruction of the larynx at the level of the glottis. This results in mass effect and obstruction of the hypopharynx. Erosion of the bilateral thyroid cartilage as well as the cricoid cartilage evident. Cartilage erosion has significantly progressed since the prior exam. The size of the mass has overall progressed since the prior exam. Nodular and heterogeneous enhancement is evident throughout this region most prominently at the superior margin. There is invasion of the preepiglottic and paraglottic fat. Extensive skin thickening and subcutaneous infiltration is stable to slight increase from prior, possibly post radiation change. No cervical lymphadenopathy is evident. Vasculature patent. Limited intracranial evaluation within normal limits. Orbits normal. Degenerative changes of the cervical spine. No osseous invasion of the vertebral bodies. No destructive osseous lesion. Emphysematous changes noted at the lung apices with multiple pulmonary nodules, many of which demonstrate cavitary change. IMPRESSION: 1. Significant interval regional progression of the mass centered at the glottis with preepiglottic and pericolonic fat invasion. Significant interval progression of cartilaginous destruction of the cricoid and thyroid cartilage. Complete obstruction of the larynx. 2. Diffuse skin thickening and subcutaneous infiltration may represent post radiation change. 3. No cervical lymphadenopathy. 4. Partially visualized pulmonary metastatic disease. Cavitary changes suggest the squamous origin. 5. Emphysema. Electronically signed by: Joao Bridges M.D. 09/15/2017 2:14 PM Dictated Date/Time: 09/15/2017 2:08 PM
== END | disposition home or self-care (01) ==
LOC: C.CTS 13:32
PROVIDERS: ATTEND Internal Medicine Hematology & Oncology
DX: C32.8 Malignant neoplasm of overlapping sites of larynx (principal); C78.00 Secondary malignant neoplasm of unspecified lung; M79.9 Soft tissue disorder, unspecified; J43.9 Emphysema, unspecified

== ENCOUNTER 2017-09-25 12:06 | Day surgery (SDC) | payer OTHER ==
[~2017-09-25] VITALS: Ht 175.3 cm; Wt 56.9 kg
[~2017-09-25 12:06] MED LIST changes: -OPTIRAY 320 IV PRN
[2017-09-25 12:24] VITALS: BP 165/87; PULSE 85; TEMP 37.1; O2SAT 98
[2017-09-25 12:25] VITALS: Ht 175.3 cm; Wt 56.9 kg
[2017-09-25] MEDS ORDERED: NURSING VERBAL MED ORDER ONE (12:45)
[2017-09-25] MEDS ORDERED: FENTANYL PATCH REMOVE & WASTE SCH (12:59)
[2017-09-25] MEDS ORDERED: DEXTROSE 5% IV ONE (13:00)
[2017-09-25] MEDS ORDERED: FENTANYL 25 MCG/HR TDSY TD SCH (13:00)
[2017-09-25] MEDS ORDERED: DEXAMETHASONE IV ONE (13:00)
[2017-09-25] MEDS ORDERED: DiphenhydrAMINE HCL 50 MG/ML VIAL IV SCH (13:45)
[2017-09-25] MEDS ORDERED: METHYLPREDNISOLONE 125 MG in SYRINGE 0 ML IV PRN (13:45)
[2017-09-25] MEDS ORDERED: HYDROCORTISONE IV 100 MG in SYRINGE 0 ML IV PRN (13:45)
[2017-09-25] MEDS ORDERED: DiphenhydrAMINE HCL 50 MG/ML VIAL IV PRN (13:45)
[2017-09-25 15:20] VITALS: BP 162/82; PULSE 78; TEMP 36.9; O2SAT 99
[2017-09-25 15:35] VITALS: BP 166/84; PULSE 101; TEMP 36.9; O2SAT 98
[2017-09-25 15:50] VITALS: BP 64/48; PULSE 133; O2SAT 94
[2017-09-25] MEDS ORDERED: CHECK FENTANYL PATCH PLACEMENT SCH (16:00)
[2017-09-25] MEDS ORDERED: MAGNESIUM SULFATE 1GM / D5W 100 ML IV SCH (16:15)
[2017-09-25] MEDS ORDERED: FAMOTIDINE IV INJ 20 MG in SYRINGE 3 ML IV SCH (17:15)
[2017-09-25] MEDS ORDERED: PALONOSETRON IV 0.25 MG in SYRINGE 0 ML IV SCH (17:15)
[2017-09-25] MEDS ORDERED: FOSAPREPITANT DIMEGLUMINE INJ 150 MG in SODIUM CHLORIDE 0.9% 150ML 145 ML IV SCH (17:15)
[2017-09-25] MEDS ORDERED: FLUT50SP45 NAE (17:51)
[2017-09-25] MEDS ORDERED: PROC1SUP RE (17:51)
[2017-09-25] MEDS ORDERED: SERT25TA PO (17:51)
[2017-09-25] MEDS ORDERED: DXM/4 PO ×2 (17:51)
[2017-09-25] MEDS ORDERED: DRGTP12 EX (17:51)
[2017-09-25] MEDS ORDERED: LEVO50TA6 PO (17:51)
[2017-09-25] MEDS ORDERED: ONDA8TAB12 PO (17:51)
[2017-09-25] MEDS ORDERED: PRED5CON PEG (18:12)
[2017-09-25] MEDS ORDERED: POLYOLEFIN IV SCH ×2 (18:15)
[2017-09-25] MEDS ORDERED: SOD CHL IV SCH ×2 (18:15)
[2017-09-25] MEDS ORDERED: PACLITAXEL IV SCH ×2 (18:15)
[2017-09-25] MEDS ORDERED: DEXTROSE 5% IV SCH (21:15)
[2017-09-25] MEDS ORDERED: CARBOPLATIN IV SCH (21:15)
== END 2017-09-25 18:42 | disposition home or self-care (01) ==
LOC: C.4E 12:06 → C.OPB 12:06
PROVIDERS: ATTEND Internal Medicine Hematology & Oncology
DX: Z51.11 Encounter for antineoplastic chemotherapy (principal); C32.8 Malignant neoplasm of overlapping sites of larynx

== ENCOUNTER 2017-09-25 16:06 | Emergency (ER) | payer OTHER ==
[~2017-09-25] VITALS: Ht 175.3 cm; Wt 55.0 kg
[2017-09-25] MEDS ORDERED: DiphenhydrAMINE HCL 50 MG/ML VIAL IV STA (16:17)
[2017-09-25] MEDS ORDERED: FAMOTIDINE IV INJ 20 MG in DEXTROSE 5% 100ML 100 ML IV STA (16:17)
[2017-09-25] MEDS ORDERED: METHYLPREDNISOLONE 125 MG VIAL IV STA (16:17)
[2017-09-25] MEDS ORDERED: SODIUM CHLORIDE 0.9% 1000ML 1,000 ML IV STA (16:17)
[2017-09-25 16:22] VITALS: Ht 175.3 cm; Wt 55.0 kg
--- NOTE | 2017-09-25 16:35 | EMERGENCY ROOM VISIT NOTE ---
History Report prepared by Mac: Abdulkadir Shankar Under the Supervision of: Dr. Jensen Brown M.D. First contact with patient: 16:07 Stated Complaint: CODE PURPLE History of Present Illness The patient is a 56 year old race male with a past medical history of T4 laryngeal carcinoma and COPD who presents to the ED with a cc of a resolved syncopal episode beginning [employer]. The patient is accompanied by his nurse who states that the patient has a history of T4 laryngeal carcinoma, which he was diagnosed with 2015, and has been receiving chemotherapy. She reports the patient had 20 minutes worth of chemotherapy today when he became pruritic all over his body. His nurse states the patient then became diaphoretic and pale in appearance. She reports his blood pressure dropped to the 60s systolically and his heart rate increased to the 130s. She states the patient then experienced a short syncopal episode. The patient states he is currently Positive pruritic, sore throat, diaphoresis, pale, tachycardic, hypotension. Negative SOB, chest pain, nausea, vomiting, using oxygen. Source of History: patient, nursing staff Onset: [employer]OCIATE Position: other (global) Quality: other (global) Timing: resolved Associated Symptoms: + diaphoresis, No chest pain, No SOB, No nausea, No vomiting Note: Associated symptoms: pale, tachycardic, hypotension, pruritic Review of Systems See HPI for pertinent positives and negatives. A total of ten systems were reviewed and were otherwise negative. Past Medical & Surgical Medical Problems: (1) COPD (chronic obstructive pulmonary disease) (2) Malignant neoplasm of glottis (3) Mass of larynx Family History Patient reports no known family medical history. Social History Smoking Status: Heavy Tobacco Smoker Marital Status: in relationship Housing Status: lives with family Occupation Status: employed Current/Historical Medications Scheduled Dexamethasone (Decadron), 40 MG PO DAILY Fentanyl (Fentanyl), 1 PATCH EX [id number] Fluticasone Propionate (Nasal) (Allergy Nasal [place] 24 Ho), 2 SPRAYS JAJA DAILY Levothyroxine Sodium (Levothyroxine Sodium), 50 MCG PO DAILY Prednisone (Prednisone Intensol), 10 ML PEG QD Sertraline (Zoloft), 25 MG PO DAILY Scheduled PRN Ondansetron Hcl (Zofran), 8 MG PO Q8 PRN for Nausea Prochlorperazine (Compro), 25 MG RE Q12 PRN for Nausea or Vomiting Miscellaneous Medications Dexamethasone (Decadron), 4 MG PO Allergies Coded Allergies: Cetuximab (Unverified Adverse Reaction, Severe, infusion reaction; itching , hypotension, resp. distress, 09/25/17) Physical Exam Vital Signs Date Time Temp Pulse Resp B/P (MAP) Pulse Ox O2 Delivery O2 Flow Rate FiO2 09/25/17 17:02 108 24 126/87 96 Trach Collar 6.0 09/25/17 16:36 108 09/25/17 16:22 106 20 87/68 96 Trach Collar Physical Exam GENERAL: Awake, alert, well-appearing, NAD, poor hygiene HENT: Normocephalic, atraumatic. Posterior pharynx is clear. Trach is in place. Mild secretions. EYES: Normal conjunctiva. Sclera non-icteric. PERRL. No anisocoria. NECK: Supple. No nuchal rigidity. FROM. RESPIRATORY: CTAB, no rhonchi, wheezing, crackles CARDIAC: RRR, no MRG ABDOMEN: Soft, NTND, BS+ MSK: No chest wall TTP, no LE edema NEURO: GCS 15, CN 2-12 intact, moves all 4s on command SKIN: Some blanching urticaria over the bilateral upper extremities and chest. Medical Decision & Procedures Laboratory Results 09/25/17 16:57 Red Blood Count 3.60, Mean Corpuscular Volume 91.9, Mean Corpuscular Hemoglobin 30.3, Mean Corpuscular Hemoglobin Concent 32.9, Mean Platelet Volume 8.4, Neutrophils (%) (Auto) 94.2, Lymphocytes (%) (Auto) 3.2, Monocytes (%) (Auto) 1.8, Eosinophils (%) (Auto) 0.2, Basophils (%) (Auto) 0.1, Neutrophils # (Auto) 10.97, Lymphocytes # (Auto) 0.37, Monocytes # (Auto) 0.21, Eosinophils # (Auto) 0.02, Basophils # (Auto) 0.01 09/25/17 16:57 Test 09/25/17 16:57 White Blood Count 11.64 K/uL (4.8-10.8) Red Blood Count 3.60 M/uL (4.7-6.1) Hemoglobin 10.9 g/dL (14.0-18.0) Hematocrit 33.1 % (42-52) Mean Corpuscular Volume 91.9 fL (80-100) Mean Corpuscular Hemoglobin 30.3 pg (25-34) Mean Corpuscular Hemoglobin Concent 32.9 g/dl (32-36) Platelet Count 297 K/uL (130-400) Mean Platelet Volume 8.4 fL (7.4-10.4) Neutrophils (%) (Auto) 94.2 % Lymphocytes (%) (Auto) 3.2 % Monocytes (%) (Auto) 1.8 % Eosinophils (%) (Auto) 0.2 % Basophils (%) (Auto) 0.1 % Neutrophils # (Auto) 10.97 K/uL (1.4-6.5) Lymphocytes # (Auto) 0.37 K/uL (1.2-3.4) Monocytes # (Auto) 0.21 K/uL (0.11-0.59) Eosinophils # (Auto) 0.02 K/uL (0-0.5) Basophils # (Auto) 0.01 K/uL (0-0.2) RDW Standard Deviation 45.6 fL (36.4-46.3) RDW Coefficient of Variation 13.7 % (11.5-14.5) Immature Granulocyte % (Auto) 0.5 % Immature Granulocyte # (Auto) 0.06 K/uL (0.00-0.02) Anion Gap 7.0 mmol/L (3-11) Est Creatinine Clear Calc Drug Dose 47.0 ml/min Estimated GFR () 67.1 Estimated GFR (Non- 57.9 BUN/Creatinine Ratio 9.3 (10-20) Calcium Level 9.1 mg/dl (8.5-10.1) Laboratory results reviewed by me Medications Administered Medications (Trade) Dose Ordered Sig/Vasile Route Start Time Stop Time Status Last Admin Dose Admin Methylprednisolone Sodium Succinate (Solu-Medrol IV) 125 mg NOW STAT IV 09/25/17 16:17 09/25/17 16:19 DC 09/25/17 16:43 125 MG Diphenhydramine HCl (Benadryl Inj) 50 mg NOW STAT IV 09/25/17 16:17 09/25/17 16:19 DC 09/25/17 16:44 50 MG Famotidine 20 mg/ Dextrose 102 ml @ 200 mls/hr ONE STAT IV 09/25/17 16:17 09/25/17 16:47 DC 09/25/17 16:43 200 MLS/HR Sodium Chloride 1,000 ml @ 999 mls/hr Q1H1M STAT IV 09/25/17 16:17 09/25/17 17:17 DC 09/25/17 16:41 999 MLS/HR Fentanyl Citrate (Fentanyl Inj) 25 mcg NOW ONCE IV 09/25/17 17:00 09/25/17 17:01 DC 09/25/17 17:01 25 MCG Ondansetron HCl (Zofran Inj) 4 mg NOW STAT IV 09/25/17 16:47 09/25/17 16:48 DC 09/25/17 17:01 4 MG ECG Per My Interpretation Indication: syncope Rate (beats per minute): 92 Rhythm: normal sinus Findings: other (Normal intervals and axis, No STS changes or TWI.) ED Course 1611: The patient was evaluated in room B06. A complete history and physical exam was performed. 4: I reevaluated the patient and he is doing well and getting medications. 1811: I reevaluated the patient. Discussed results and discharge instructions: He verbalized understanding and agreement. The patient is ready for discharge. Medical Decision Nursing notes reviewed. Ancillary studies and prior records reviewed. The patient is a 56 year old race male with a past medical history of T4 laryngeal carcinoma and COPD who presents to the ED with a cc of a resolved syncopal episode beginning [employer]. The patient's presentation and history were concerning for etiologies such as allergic reaction, anaphylaxis, urticaria, Rousseau-Bolivar syndrome, toxic epidermal necrolysis, erythema multiforme, cellulitis, as well as others were entertained. Patient was seen and evaluated the bedside. Patient presented after receiving his first initial dose of a chemotherapy infusion. Flexion to 20 minutes and the patient became flushed complained of itching, shortness of breath, throat tightening and did have a brief loss of consciousness. No seizure-like activity. The patient did not fall. The patient otherwise currently complains of some mild itching and does complain of some throat tightening. Posterior pharynx is clear. The patient already has an advanced airway in place. The patient does have a trach which is placed over one year ago. Patient does have some mild secretions to the trach. Patient does have some mild urticaria noted over the bilateral upper extremities and chest. Patient did have blood work completed, EKG And was given medications to help with his likely infusion reaction. The oncologist to present to discuss this with the patient. He stated that they can likely slow down the infusion to premedicate in the future. Patient does not need to be admitted or further evaluated from an inpatient standpoint if he is otherwise clear. Patient was reevaluated. The patient was feeling improved. Patient's blood pressure improved with fluids. Patient's EKG showed no signs of an overt arrhythmia or ischemic changes. Patient was given prednisone for home and told to follow-up with his oncologist as well as primary care physician. Was told he could take famotidine and/or Benadryl for any itching. Patient was given strict follow-up, discharge, and return precautions. All questions were answered. Patient was deemed suitable for outpatient follow-up at this time. Patient agreed with the plan of care and was safely discharged home. Medication Reconcilliation Current Medication List: was personally reviewed by me Blood Pressure Screening Patient's blood pressure: Normal blood pressure Impression Primary Impression: Infusion reaction Scribe Attestation The scribe's documentation has been prepared under my direction and personally reviewed by me in its entirety. I confirm that the note above accurately reflects all work, treatment, procedures, and medical decision making performed by me. Departure Information Dispostion Home / Self-Care Prescriptions Prednisone (PREDNISONE INTENSOL) 5 Mg/Ml Con 10 ML PEG QD for 4 Days, #40 ML Prov: Jensen Brown M.D. 09/25/17 Referrals Tyler Floyd MD (PCP) Patient Instructions ED Drug React Allergic, My [facility] Additional Instructions Please return to the emergency department if you have worsening or recurrent symptoms not amenable to at-home treatment. Please call for a follow-up appointment with her primary care physician. Please take your medications as prescribed. If you have other concerns and/or complaints please feel free to also call your primary care physician's office or return the ED for further evaluation, management, and treatment. Please take your steroids preferably in the morning and with food as they may cause some upset stomach and cause you to be very awake and alert. You may use Benadryl and/or famotidine for itchiness. You may take 800 mg Ibuprofen every 6 hours as needed for pain/fever with food unless told by your physician not to take NSAIDs. You may take tylenol 1000 mg every 6 hours as needed for pain/fever unless told by your physician to not take it or have liver problems. You may take motrin and tylenol separately or at the same time. Take your medications as prescribed. You have been examined and treated today on an emergency basis only. This is not a substitute for, or an effort to provide, complete comprehensive medical care. It is impossible to recognize and treat all injuries or illnesses in a single emergency department visit. It is therefore important that you follow up closely with [facility], your PCP, and/or your specialist(s). Call as soon as possible for an appointment. Thank you for your time and consideration. I look forward to speaking with you again soon. Please don't hesitate to call us if you have any questions.
[2017-09-25] MEDS ORDERED: ONDANSETRON INJ 2 MG/ML 2 ML VIAL IV STA (16:47)
[2017-09-25] MEDS ORDERED: FENTANYL CITRATE INJ 50 MCG/1 ML 2 ML VIAL IV ONE (17:00)
[2017-09-25 17:23] LABS: BASO % 0.1 %; BASO ABS # 0.01 K/uL (0-0.2); EOS % 0.2 %; EOS ABS # 0.02 K/uL (0-0.5); HEMATOCRIT 33.1 % (42-52); HEMOGLOBIN 10.9 g/dL (14.0-18.0); IG# 0.06 K/uL (0.00-0.02); LYMPH % 3.2 %; LYMPH ABS # 0.37 K/uL (1.2-3.4); MEAN CELL VOLUME 91.9 fL (80-100); MEAN CORPUSCULAR HEMOGLOBIN 30.3 pg (25-34); MEAN CORPUSCULAR HGB CONC 32.9 g/dl (32-36); MEAN PLATELET VOLUME 8.4 fL (7.4-10.4); MONO % 1.8 %; MONO ABS # 0.21 K/uL (0.11-0.59); NEUT % 94.2 %; NEUT ABS # 10.97 K/uL (1.4-6.5); PLATELET COUNT 297 K/uL (130-400); RED CELL DISTRIBUTION WIDTH CV 13.7 % (11.5-14.5); RED CELL DISTRIBUTION WIDTH SD 45.6 fL (36.4-46.3); WHITE BLOOD COUNT 11.64 K/uL (4.8-10.8)
[2017-09-25 17:39] LABS: CALCIUM 9.1 mg/dl (8.5-10.1); CREATININE 1.35 mg/dl (0.60-1.40); POTASSIUM 3.3 mmol/L (3.5-5.1)
[2017-09-25] MEDS ORDERED: LEVO50TA6 PO (17:51)
[2017-09-25] MEDS ORDERED: FLUT50SP45 NAE (17:51)
[2017-09-25] MEDS ORDERED: SERT25TA PO (17:51)
[2017-09-25] MEDS ORDERED: DRGTP12 EX (17:51)
[2017-09-25] MEDS ORDERED: PROC1SUP RE (17:51)
[2017-09-25] MEDS ORDERED: ONDA8TAB12 PO (17:51)
[2017-09-25] MEDS ORDERED: DXM/4 PO ×2 (17:51)
[2017-09-25] MEDS ORDERED: PRED5CON PEG (18:12)
[2017-09-25 18:59] VITALS: BP 133/82; PULSE 96; O2SAT 96
== END 2017-09-25 19:11 | disposition home or self-care (01) ==
LOC: EDBD 16:06 → EDSEX 16:06 → C.EDB 16:08
DX: T45.1X5A Adverse effect of antineoplastic and immunosuppressive drugs, initial encounter (principal); J44.9 Chronic obstructive pulmonary disease, unspecified; C32.9 Malignant neoplasm of larynx, unspecified; Z72.0 Tobacco use; Z79.891 Long term (current) use of opiate analgesic; Z88.8 Allergy status to other drugs, medicaments and biological substances

== ENCOUNTER → 2017-10-01 | Outpatient (CLI) | payer OTHER ==
[~2017-10-01] MED LIST changes: -ALBU2SYP9; +DRGTP12 EX; +DXM/4 PO; +FLUT50SP45 NAE; -IBUP-1459 PO; +LEVO50TA6 PO; +ONDA8TAB12 PO; +PRED5CON PEG; +PROC1SUP RE
--- NOTE | 2017-10-01 13:17 | DIAGNOSTIC IMAGING REPORT ---
PET/CT CLINICAL HISTORY: Squamous cell carcinoma of larynx. TECHNIQUE: A PET/CT was performed from the skull vertex through the upper thighs following intravenous injection of 12.65 mCi of F 18 FDG IV. The injection was performed at 7:53 AM on October 01, 2017 and imaging began at 8:50 AM on October 01, 2017. Unenhanced CT was performed for attenuation correction purposes and anatomic localization. COMPARISON STUDY: PET CT June 10, [address] of the neck and chest September 05, 2017 FINDINGS: Head and neck: The large glottic/supraglottic mass has markedly increased since PET/CT of June 10, 2016 and is similar to CT of September 15, 2017. Associated destruction of the thyroid cartilage is noted. This mass measures approximately 5.3 x 5 cm and has marked FDG uptake with an SUV max of 27. This occludes the larynx. This is unchanged since previous neck CT. There is significant adjacent edema and infiltration within the adjacent soft tissues. Note is made of asymmetric subcutaneous nodular thickening of the right anterior neck with FDG uptake. The SUV max for the right subcutaneous tissues is 8.6. Intracranial contents are unremarkable on this unenhanced exam. No pathologically enlarged cervical lymph nodes are present. A tracheostomy tube is in place. In addition, note is made of multifocal FDG uptake projecting over the strap musculature of the mid to lower neck. Chest: A subcarinal lymph node measures 1.6 cm in short axis diameter and has an SUV max of 16.1. A right hilar node measures 1 cm in short axis diameter and has an SUV max of 11.8. These are similar to chest CT of September 15, 2017. There are numerous FDG avid nodules throughout the lungs, several of which are cavitary. These include a 2.5 cm right upper lobe nodule shown on image 70 which has slightly increased in size since CT of September 15, 2017. It previously measured 2.3 cm. The SUV max is 23.5. A 2 cm right lower lobe nodule has slightly increased in size since prior chest CT. The SUV max for this nodule is 13.9. Note is made of a 2 cm lingular nodule with marked FDG uptake. Abdomen and Pelvis: A gastrostomy tube is in place. There is no suspicious FDG uptake within the abdomen or the pelvis. There is no abdominal or pelvic lymphadenopathy. Musculoskeletal: No suspicious skeletal uptake is identified. IMPRESSION: 1. Significant increase in size of the FDG avid glottic/supraglottic mass associated erosion of the thyroid cartilage and complete obstruction of the airway since PET/CT of June 10, 2016. Similar appearance to neck CT of September 15, 2017. Tracheostomy tube in place. This is consistent with squamous cell carcinoma. 2. Infiltration and edema adjacent to the glottic mass may reflect post radiation change. FDG avid subcutaneous nodular tissue within the mid to lower neck as well as within the strap muscles could be related to postradiation change or represent tumor. 3. Numerous FDG avid pulmonary metastases which have developed since PET/CT of June 20, 2016 and slightly increased in size since CT of September 15, 2017. 4. FDG avid subcarinal and right hilar lymph nodes consistent with dulce spread of disease. 5. No evidence of metastatic disease within the abdomen or pelvis. Electronically signed by: Everardo Harper M.D. 10/01/2017 1:15 PM Dictated Date/Time: 10/01/2017 11:57 AM
== END | disposition home or self-care (01) ==
LOC: C.PET 07:44
PROVIDERS: ATTEND Nurse Practitioner Family
DX: C32.8 Malignant neoplasm of overlapping sites of larynx (principal)

== ENCOUNTER 2017-10-08 09:14 | Outpatient (CLI) | payer OTHER ==
[~2017-10-08] VITALS: Ht 175.2 cm; Wt 61.7 kg
[2017-10-08] VITALS (16 sets, daily range): BP systolic 118–158; BP diastolic 66–85; PULSE 54–76; TEMP 36.6–36.9; O2SAT 97–100
[2017-10-08] MEDS ORDERED: HYDROCORTISONE SOD SUCCINATE 100 MG/2 ML VIAL IV PRN (10:30)
[2017-10-08] MEDS ORDERED: METHYLPREDNISOLONE 125 MG VIAL IV PRN (10:30)
[2017-10-08] MEDS ORDERED: DiphenhydrAMINE HCL 50 MG/ML VIAL IV PRN (10:45)
[2017-10-08 11:24] LABS: BASO % 0.1 %; BASO ABS # 0.01 K/uL (0-0.2); HEMATOCRIT 29.3 % (42-52); HEMOGLOBIN 9.8 g/dL (14.0-18.0); IG# 0.05 K/uL (0.00-0.02); LYMPH ABS # 0.31 K/uL (1.2-3.4); MEAN CELL VOLUME 90.2 fL (80-100); MEAN CORPUSCULAR HEMOGLOBIN 30.2 pg (25-34); MEAN PLATELET VOLUME 8.1 fL (7.4-10.4); MONO % 0.8 %; MONO ABS # 0.08 K/uL (0.11-0.59); NEUT % 95.6 %; NEUT ABS # 10.04 K/uL (1.4-6.5); PLATELET COUNT 400 K/uL (130-400); RED CELL DISTRIBUTION WIDTH CV 13.3 % (11.5-14.5); WHITE BLOOD COUNT 10.49 K/uL (4.8-10.8)
[2017-10-08 11:41] LABS: MEAN CORPUSCULAR HGB CONC 33.4 g/dl (32-36)
[2017-10-08 11:42] LABS: ALT/SGPT 19 U/L (12-78); AST/SGOT 15 U/L (15-37); BLOOD UREA NITROGEN 25 mg/dl (7-18); CARBON DIOXIDE 26 mmol/L (21-32); CREATININE 1.32 mg/dl (0.60-1.40); GLUCOSE 131 mg/dl (70-99); POTASSIUM 4.4 mmol/L (3.5-5.1); SODIUM 133 mmol/L (136-145)
[2017-10-08 11:53] LABS: ALKALINE PHOSPHATASE 57 U/L (45-117); TOTAL PROTEIN 7.1 gm/dl (6.4-8.2)
[2017-10-08] MEDS ORDERED: DiphenhydrAMINE HCL 50 MG/ML VIAL IV SCH (12:45)
[2017-10-08] MEDS ORDERED: FAMOTIDINE IV INJ 20 MG in SYRINGE 3 ML IV SCH (12:45)
[2017-10-08] MEDS ORDERED: FOSAPREPITANT DIMEGLUMINE INJ 150 MG in SODIUM CHLORIDE 0.9% 150ML 145 ML IV SCH (12:45)
[2017-10-08] MEDS ORDERED: PALONOSETRON IV 0.25 MG in SYRINGE 0 ML IV SCH (12:45)
[2017-10-08] MEDS ORDERED: SOD CHL IV SCH ×2 (13:30)
[2017-10-08] MEDS ORDERED: PACLITAXEL IV SCH ×2 (13:30)
[2017-10-08] MEDS ORDERED: POLYOLEFIN IV SCH ×2 (13:30)
[2017-10-08] MEDS ORDERED: DEXTROSE 5% IV SCH (16:30)
[2017-10-08] MEDS ORDERED: CARBOPLATIN IV SCH (16:30)
== END 2017-10-08 20:43 | disposition home or self-care (01) ==
LOC: C.OPB 09:14 → C.4E 09:15 → C.OPB 20:43
PROVIDERS: ATTEND Internal Medicine Hematology & Oncology
DX: C32.8 Malignant neoplasm of overlapping sites of larynx (principal)

== ENCOUNTER → 2017-10-29 | Outpatient (CLI) | payer OTHER ==
[~2017-10-29] MED LIST changes: +CARBOPLATIN IV SCH; +DEXTROSE 5% IV SCH; +DiphenhydrAMINE HCL 50 MG/ML VIAL IV ONE; +FAMOTIDINE 10 MG/ML 2ML VIAL IV ONE; +FOSAPREPITANT DIMEGLUMINE INJ 150 MG in SODIUM CHLORIDE 0.9% 150ML 145 ML IV SCH; +PACLITAXEL IV SCH; +PALONOSETRON IV 0.25 MG in SYRINGE 0 ML IV SCH; +POLYOLEFIN IV SCH; +SOD CHL IV SCH
== END ==
LOC: C.OPB 08:00
PROVIDERS: ATTEND Internal Medicine Hematology & Oncology
DX: Z51.11 Encounter for antineoplastic chemotherapy (principal); C32.9 Malignant neoplasm of larynx, unspecified

== ENCOUNTER 2018-07-23 14:45 | Inpatient (IN) ==
[2018-07-23] MEDS ORDERED: SODIUM CHLORIDE 0.9% 500 ML IV STA (15:52)
[2018-07-23] MEDS ORDERED: MoRPHine SULFATE 4 MG/ML 1 ML CARP\\VIAL IV STA ×2 (15:52→16:56)
[2018-07-23] MEDS ORDERED: ONDANSETRON INJ 2 MG/ML 2 ML VIAL IV STA (15:52)
--- NOTE | 2018-07-23 16:27 | XRay Report ---
XR chest 1V portable CLINICAL HISTORY: laryngeal ca, rib pain COMPARISON STUDY: 05/24/2016 FINDINGS: The patient is hyperinflated. A tracheostomy tube is visualized.There are left upper lobe p ulmonary nodules, suspicious for metastatic disease.[ There are subtle left mid and lower lung zone a irspace opacities. No pneumothorax is visualized. IMPRESSION: 1. Emphysema 2. Left upper lobe pulmonary nodules measuring up to 15 mm. These are suspicious for metastatic disea se 3. Subtle left mid and lower lung zone airspace opacities, likely infectious/inflammatory Electronically signed by: Ayden Flanagan M.D. 07/23/2018 4:25 PM
--- NOTE | 2018-07-23 16:29 | Emergency Department Note ---
History of Present Illness General Chief complaint: Pain (Generalized) Stated complaint: CANT GET PAIN UNDER CONTROL, LARYNX CANCER Source: patient and family Mode of arrival: ambulatory Limitations: no limitations History of Present Illness Maximum Pain Intensity: 9 This patient is a 57-year-old male who presents to the emergency department complaining of pain due to laryngeal cancer and failure to thrive. History is obtained both from the patient via white board and patient's significant other. They report patient has been significantly declining over the past 2-3 weeks. He was first diagnosed with laryngeal cancer in 2016. He has been through multiple rounds of chemotherapy and radiation and initially had some improvement. They report that currently, he is on immunotherapy and on his visit today to the oncologist was told that this does not seem to be working and the cancer has been progressing despite treatment. He reports he was sent here by his oncologist for admission due to failure to thrive and to discuss palliative care/hospice. The patient reports that the cancer has spread throughout his bones. He reports 9/10 pain in his back and both ribs. He has had an increased cough over the past week and states that there has been some drainage around his tracheostomy. He states that he has become very weak and can only walk approximately 30 feet before he becomes short of breath. He has been taking hydrocodone 3 times daily and has been doubling up on his dosage without relief of his pain. His also reports it is very difficult for him to take in any food due to difficulty swallowing. They have been trying to maintain his nutrition with juice, formula and easy to swallow foods like mashed potatoes. He denies any recent fevers, vomiting, or chest pain. Home Medications Home Medications Medication Instructions Recorded Confirmed Type Medical Marijuana PRN 07/23/18 History hydrocodone-acetaminophen 1 tab PO Q4 PRN 07/23/18 07/23/18 History levothyroxine 150 mcg PO DAILY 07/23/18 07/23/18 History sertraline 50 mg PO DAILY 07/23/18 07/23/18 History Allergies Allergy/AdvReac Type Severity Reaction Status Date / Time cetuximab AdvReac Severe infusion Verified 07/23/18 16:55 reaction; itching, hypotension, resp. distress Past Med/Surg History Medical History Laryngeal cancer Severe malnutrition Anemia (Acute) Anxiety (Acute) Cancer (Acute) Chronic obstructive pulmonary disease (Acute) Depression (Acute) Hearing deficit (Acute) Hypothyroidism (Acute) Malnutrition of moderate degree (Acute) Presence of tracheostomy (Acute) Recent weight loss (Acute) Weight loss, unintentional (Acute) Surgical History History of appendectomy (Acute) History of hernia repair (Acute) History of tracheostomy (Acute) Family History Other HTN (hypertension) Social History Current Living Situation: Significant Other Current Living Situation Comment: girlfriend Other Information That Helps Us Care for You: No Feels Safe at Home: Yes Smoking Status: Former smoker Hx Alcohol Use: No Hx Substance Use: No Beliefs That Will Affect Care: None Preferred Language: Maltese Communication Ability: Effective Review of Systems A total of 10 systems reviewed and were otherwise negative Physical Exam Vital Signs Vital Signs - 24 hr 07/23/18 14:50 07/23/18 17:08 07/23/18 18:22 Temperature 36.3 C L Temperature Source Oral Sepsis Recent Fever Within 48 Hours No Sepsis Action Taken by Nursing No Action Required Pulse Rate 66 Pulse Rate [Left Finger] 63 66 Pulse Rhythm Regular Pulse Strength Normal Respiratory Rate 20 17 20 Respiratory Effort / Characteristics Non-Labored Non-Labored Spontaneous Respiratory Depth Normal Normal Blood Pressure 93/63 L Blood Pressure [Left Arm] 103/66 93/68 L Blood Pressure Mean 73 Blood Pressure Mean [Left Arm] 78 76 Blood Pressure Position Sitting Pulse Oximetry 95 100 Oxygen Delivery Method Room Air Room Air 07/23/18 19:25 07/23/18 21:58 Temperature 36.6 C Temperature Source Oral Sepsis Recent Fever Within 48 Hours Sepsis Action Taken by Nursing Pulse Rate Pulse Rate [Left Finger] 75 118 H Pulse Rhythm Pulse Strength Respiratory Rate 18 18 Respiratory Effort / Characteristics Non-Labored Spontaneous Respiratory Depth Normal Blood Pressure Blood Pressure [Left Arm] 105/72 116/80 Blood Pressure Mean Blood Pressure Mean [Left Arm] 83 92 Blood Pressure Position Pulse Oximetry 100 Oxygen Delivery Method Trach Collar VITALS: Vitals are noted on the nurse's note and reviewed by myself. GENERAL: This is a 57-year-old male, chronically ill appearing, cachectic, but in no acute distress. SKIN: The skin was without rashes. There is some serous drainage leaking from the patient's tracheostomy. EARS: External auditory canals clear, tympanic membranes pearly lomax without erythema or effusion bilaterally. EYES: Pupils equal round and reactive to light and accommodation. Extraocular movements intact. MOUTH: Mucous membranes moist. Uvula midline. NECK: Tracheostomy present to anterior neck with small amount of serous drainage. There is surrounding soft tissue mass. HEART: Regular rate and rhythm without murmurs gallops or rubs. LUNGS: Decreased breath sounds throughout without wheezes, rales or rhonchi. ABDOMEN: Concave curvature of the abdomen, soft without tenderness to palpation. EXTREMITIES: No peripheral edema. NEURO: Patient was alert and oriented to person place and time. PSYCH: Appropriate affect, patient communicates with writing board. Course Consultations Consultation #1: Dr. Shashank Garcia [facility] [facility] [place] Administered Medications Hydromorphone HCl (Dilaudid) 1 mg IV Q3H PRN PRN Reason: Pain Stop: 08/06/18 20:24 Last Admin: 07/23/18 20:52 Dose: 1 mg Pamidronate Disodium 60 mg/ (Sodium Chloride) 1,020 mls @ 255 mls/hr IV .Q4H ISHA Stop: 07/24/18 01:09 Last Admin: 07/23/18 21:52 Dose: 255 mls/hr Sodium Chloride (Nss 1000ml) 1,000 mls @ 250 mls/hr IV .Q4H ISHA Stop: 08/22/18 21:14 Last Admin: 07/23/18 21:50 Dose: 250 mls/hr Discontinued Medications Sodium Chloride (Nss) 500 mls @ 500 mls/hr IV .Q1H STA Stop: 07/23/18 16:51 Last Infusion: 07/23/18 18:10 Dose: 0 mls/hr Admin: 07/23/18 17:01 Dose: 500 mls/hr Ampicillin Sodium/Sulbactam Sodium 3,000 mg/ Sodium Chloride 108 mls @ 200 mls/ hr IV NOW STA Stop: 07/23/18 17:06 Last Infusion: 07/23/18 18:55 Dose: 0 mls/hr Admin: 07/23/18 18:21 Dose: 200 mls/hr Morphine Sulfate (Morphine Sulfate) 4 mg IV NOW STA Stop: 07/23/18 15:53 Last Admin: 07/23/18 18:10 Dose: Not Given Morphine Sulfate (Morphine Sulfate) 4 mg IM NOW STA Stop: 07/23/18 16:31 Last Admin: 07/23/18 18:10 Dose: Not Given Morphine Sulfate (Morphine Sulfate) 4 mg IV NOW STA Stop: 07/23/18 16:57 Last Admin: 07/23/18 16:58 Dose: 4 mg Ondansetron HCl (Zofran) 4 mg IV NOW STA Stop: 07/23/18 15:53 Last Admin: 07/23/18 16:58 Dose: 4 mg Medical Decision Making Differential Diagnosis Differential diagnosis includes malnutrition, electrolyte abnormality, dehydration, infection, among others. Medical Records Attestation: I reviewed the patient's medical records. Home Medications Current Medication List: was personally reviewed by me Laboratory Data Attestation: I reviewed the patient's lab results. Result diagrams: 07/23/18 20:26 07/23/18 20:26 Lab Results 07/23/18 07/23/18 Range/Units 20:26 20:26 WBC 18.26 H (4.8-10.8) K/uL RBC 3.06 L (4.7-6.1) M/uL Hgb 9.2 L (14.0-18.0) g/dL Hct 29.3 L (42-52) % MCV 95.8 (80-100) fL MCH 30.1 (25-34) pg MCHC 31.4 L (32-36) g/dL RDW Std Deviation 57.0 H (36.4-46.3) fL RDW Coeff of Shirley 16.4 H (11.5-14.5) % Plt Count 368 (130-400) K/uL MPV 9.1 (7.4-10.4) fL Immature Gran % (Auto) 1.9 % Neut % (Auto) 88.4 % Lymph % (Auto) 4.4 % [place] % (Auto) 5.0 % Eos % (Auto) 0.1 % Baso % (Auto) 0.2 % Immature Gran # (Auto) 0.35 H (0.00-0.02) K/uL Neut # (Auto) 16.15 H (1.4-6.5) K/uL Lymph # (Auto) 0.80 L (1.2-3.4) K/uL [place] # (Auto) 0.92 H (0.11-0.59) K/uL Eos # (Auto) 0.01 (0-0.5) K/uL Baso # (Auto) 0.03 (0-0.2) K/uL Sodium 135 L (136-145) mmol/L Potassium 4.0 (3.5-5.1) mmol/L Chloride 102 (98-107) mmol/L Carbon Dioxide 28 (21-32) mmol/L Anion Gap 5.0 (3-11) BUN 39 H (7-18) mg/dl Creatinine 1.20 (0.6-1.4) mg/dl Est Cr Clr Drug Dosing 38.0 ml/min Est GFR ( Amer) 76.8 Est GFR (Non-Af Amer) 66.3 BUN/Creatinine Ratio 32.1 H (10-20) Glucose 82 (70-99) mg/dl Calcium 12.6 H* (8.5-10.1) mg/dl Magnesium 2.0 (1.8-2.4) mg/dl Total Bilirubin 0.3 (0.2-1) mg/dl AST 17 (15-37) U/L ALT 14 (12-78) U/L Alkaline Phosphatase 141 H (45-117) U/L Total Protein 7.3 (6.4-8.2) gm/dl Albumin 2.6 L (3.4-5.0) gm/dl Globulin 4.7 H (2.5-4.0) gm/dl Albumin/Globulin Ratio 0.6 L (0.9-2) Imaging Data Attestation: I personally reviewed and interpreted this imaging study as follows : Radiologist's Impression: XR chest 1V portable CLINICAL HISTORY: laryngeal ca, rib pain COMPARISON STUDY: 05/24/2016 FINDINGS: The patient is hyperinflated. A tracheostomy tube is visualized.There are left upper lobe pulmonary nodules, suspicious for metastatic disease.[ There are subtle left mid and lower lung zone airspace opacities. No pneumothorax is visualized. IMPRESSION: 1. Emphysema 2. Left upper lobe pulmonary nodules measuring up to 15 mm. These are suspicious for metastatic disease 3. Subtle left mid and lower lung zone airspace opacities, likely infectious/ inflammatory Blood Pressure Blood Pressure Findings: Normal blood pressure Blood Pressure Disposition: did not require urgent referral MDM Narrative This patient is a 57-year-old male with past medical history of metastatic laryngeal cancer. The patient presents today due to failure to thrive and inadequate pain control at home. The patient's significant other reports that they were seen by the oncologist today and told that the current treatment is failing. They are now interested in hospice care. On exam, the patient is very cachectic and unwell appearing. Outpatient records were reviewed. The patient had labs performed a few hours prior to arrival here which showed hypercalcemia with calcium of 12.7. Patient does have a significant leukocytosis which has been increasing over the past few weeks. Patient did have CT of the abdomen/pelvis, chest and soft tissue of the neck performed within the past week. This did show progression of the patient's disease as well significant bony metastasis. Of note, there was also possible aspiration pneumonia. Patient does report he has been having a worsening cough recently and given this he will be treated for aspiration pneumonia with an initial dose of Unasyn. Patient was provided with pain medication while in the emergency department as well as IV fluids. The patient was admitted to the [facility] service for further evaluation and care. Impression & Plan Hypercalcemia, Aspiration pneumonia, Adult failure to thrive Discharge Plan Visit Data *Final* Discharge Date/Time: 07/23/18 19:37 Chief Complaint: Pain (Generalized) Stated Complaint: CANT GET PAIN UNDER CONTROL, LARYNX CANCER ED Provider: Kenneth Nova ED Midlevel Provider: Izzy Gómez Discharge Problem: Hypercalcemia, Aspiration pneumonia, Adult failure to thrive Patient Disposition: Admitted As Inpatient Discharge Instructions Interventions: ED Discharge Assessment Last Done: 07/23/18 19:37
[2018-07-23] MEDS ORDERED: MoRPHine SULFATE 4 MG/ML 1 ML CARP\\VIAL IM STA (16:30)
[2018-07-23] MEDS ORDERED: AMPICILLIN/SULBACTAM SOD 3,000 MG in 0.9 % SODIUM CHLORIDE 100 ML IV STA (16:34)
--- NOTE | 2018-07-23 17:42 | History & Physical Report ---
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 Field Primary Care Provider: Tyler Floyd MD 57 yo male with end stage laryngeal cancer, sent to the ED by Dr. Field because he is no longer responding to immune therapy for his laryngeal cancer. The patient was diagnosed with laryngeal cancer at the end of 2015, a little over 2 years ago. At the time of his presentation he could barely breathe due to compromise of his airway from the cancer. He underwent emergent tracheostomy for airway protection. He then underwent surgical resection with ENT and underwent radiation therapy. The radiation was followed by combination of radiation and chemotherapy. He was doing well for a short period but the malignancy returned and he underwent further chemo radiation. He again achieved some remission but then the cancer returned in his bones. He was treated with immune mediated therapy. On his visit today with Dr. Field he told the patient and his partner that he has run out of options, he is not responding to the latest treatment and he should change course, focus on comfort , hospice. The patient and his partner are in agreement. All of the history was taken from the patient's partner Mariam Doyle at the bedside. The patient can communicate by writing on white board but he deferred to Mariam to answer questions. She says that the past few weeks have been especially difficult. The patient is in constant pain. He was prescribed Fentanyl patch 25mcg, it was not working. Dr. Field told him to take two patches but that caused him to sleep for 13 straight hours and the patient did not like this, so he stopped using the Fentanyl. For pain control he will crush up two 10/325mg Percocet, take the crushed up pills with milk. His pain relief is suboptimal. He has a difficult time eating anything solid, has been trying mashed potatoes with gravy. He has a PEG but does not use it. He will actually drink the tube feeds that he is sent. His weight has steadily dropped. He has muscle wasting, clear signs of failure to thrive. Discussed transitioning to hospice with patient and Mariam, they agree with palliative care consult. Would like to pursue hospice at home. Allergies Allergy/AdvReac Type Severity Reaction Status Date / Time cetuximab AdvReac Severe infusion Verified 07/23/18 16:55 reaction; itching, hypotension, resp. distress Home Medications Home Medications Medication Instructions Recorded Confirmed Type Medical Marijuana PRN 07/23/18 History hydrocodone-acetaminophen 1 tab PO Q4 PRN 07/23/18 07/23/18 History levothyroxine 150 mcg PO DAILY 07/23/18 07/23/18 History sertraline 50 mg PO DAILY 07/23/18 07/23/18 History Past Med/Surg History Medical History Laryngeal cancer Severe malnutrition Anemia (Acute) Anxiety (Acute) Cancer (Acute) Chronic obstructive pulmonary disease (Acute) Depression (Acute) Hearing deficit (Acute) Hypothyroidism (Acute) Malnutrition of moderate degree (Acute) Presence of tracheostomy (Acute) Recent weight loss (Acute) Weight loss, unintentional (Acute) Surgical History History of appendectomy (Acute) History of hernia repair (Acute) History of tracheostomy (Acute) Family History Other HTN (hypertension) Social History Current Living Situation: Significant Other Current Living Situation Comment: girlfriend Other Information That Helps Us Care for You: No Feels Safe at Home: Yes Smoking Status: Former smoker Hx Alcohol Use: No Hx Substance Use: No Beliefs That Will Affect Care: None Preferred Language: Mongolian Communication Ability: Effective Review of Systems All systems reviewed & are unremarkable except as noted in HPI & below Constitutional: + weight loss Respiratory: + cough, + dyspnea and + dyspnea on exertion Musculoskeletal: + joint pain (diffuse pain in bones, due to mets) Physical Exam 2 Vital Signs (Past 24 Hours): Last Vital Signs Temp 36.3 C L 07/23/18 14:50 Pulse 63 07/23/18 17:08 Resp 17 07/23/18 17:08 BP 103/66 07/23/18 17:08 Pulse Ox 95 07/23/18 14:50 Constitutional: well developed, + ill appearing and + cachectic Eyes: PERRL, conjunctivae normal, anicteric sclerae ENMT: external ear and nose normal, oropharynx normal Neck: + abnormal visual inspection (tracheostomy in place, chronic appearing, dirty, skin erythematous, thickened, appears painful) Respiratory: normal respiratory effort and + cough Auscultation: + diminished lung sounds and + rhonchi Cardiovascular: Rate/Rhythm: regular rhythm and + tachycardic Heart Sounds : normal S1 and normal S2; no murmur Vessels: normal peripheral pulses; no JVD Gastrointestinal (Abdomen): normal bowel sounds, soft, nontender, no hepatosplenomegaly Musculoskeletal: Head/Neck/Chest: normocephalic and head atraumatic Extremities: + abnormal strength (diffuse generalized weakness) and + muscle atrophy; no cyanosis and no clubbing Skin: no rashes, warm and dry Neurologic: patellar DTR's 2+ bilat, sensation intact and PERRL, EOMI, accommodation nl, no face palsy, no dysarthria Psychiatric: Orientation: alert and oriented x 3 Affect: + depressed affect Mood: + depressed mood Lymphatic: no cervical or axillary lymphadenopathy Results & Data Laboratory Results Laboratory Results - last 24 hr 07/23/18 07/23/18 20:26 20:26 WBC 18.26 H RBC 3.06 L Hgb 9.2 L Hct 29.3 L MCV 95.8 MCH 30.1 MCHC 31.4 L RDW Std Deviation 57.0 H RDW Coeff of Shirley 16.4 H Plt Count 368 MPV 9.1 Immature Gran % (Auto) 1.9 Neut % (Auto) 88.4 Lymph % (Auto) 4.4 [place] % (Auto) 5.0 Eos % (Auto) 0.1 Baso % (Auto) 0.2 Immature Gran # (Auto) 0.35 H Neut # (Auto) 16.15 H Lymph # (Auto) 0.80 L [place] # (Auto) 0.92 H Eos # (Auto) 0.01 Baso # (Auto) 0.03 Sodium 135 L Potassium 4.0 Chloride 102 Carbon Dioxide 28 Anion Gap 5.0 BUN 39 H Creatinine 1.20 Est Cr Clr Drug Dosing 38.0 Est GFR ( Amer) 76.8 Est GFR (Non-Af Amer) 66.3 BUN/Creatinine Ratio 32.1 H Glucose 82 Calcium 12.6 H* Magnesium 2.0 Total Bilirubin 0.3 AST 17 ALT 14 Alkaline Phosphatase 141 H Total Protein 7.3 Albumin 2.6 L Globulin 4.7 H Albumin/Globulin Ratio 0.6 L Diagnostic Findings XR chest 1V portable CLINICAL HISTORY: laryngeal ca, rib pain COMPARISON STUDY: 05/24/2016 FINDINGS: The patient is hyperinflated. A tracheostomy tube is visualized.There are left upper lobe pulmonary nodules, suspicious for metastatic disease.[ There are subtle left mid and lower lung zone airspace opacities. No pneumothorax is visualized. IMPRESSION: 1. Emphysema 2. Left upper lobe pulmonary nodules measuring up to 15 mm. These are suspicious for metastatic disease 3. Subtle left mid and lower lung zone airspace opacities, likely infectious/ inflammatory Code Status & VTE Plan Code Status DNR VTE Prophylaxis Plan VTE Prophylaxis will be ordered: No
[2018-07-23] MEDS ORDERED: ACETAMINOPHEN 325 MG TAB PO PRN (20:25)
[2018-07-23 20:45] LABS: Basophils # (auto) 0.03 K/uL (0-0.2); Basophils % (auto) 0.2 %; Eosinophils # (auto) 0.01 K/uL (0-0.5); Eosinophils % (auto) 0.1 %; Hematocrit (blood only) 29.3 % (42-52); Hemoglobin 9.2 g/dL (14.0-18.0); Immature Granulocytes # (auto) 0.35 K/uL (0.00-0.02); Immature Granulocytes % (auto) 1.9 %; Lymphocytes % (auto) 4.4 %; Mean Corpuscular Volume 95.8 fL (80-100); Mean Platelet Volume 9.1 fL (7.4-10.4); Monocytes # (auto) 0.92 K/uL (0.11-0.59); Neutrophils # (auto) 16.15 K/uL (1.4-6.5); Neutrophils % (auto) 88.4 %; Platelet Count 368 K/uL (130-400); RDW Coefficient of Variation 16.4 % (11.5-14.5); Red Blood Count 3.06 M/uL (4.7-6.1); White Blood Count 18.26 K/uL (4.8-10.8)
[2018-07-23 20:51] LABS: Mean Corpuscular Hgb Conc 31.4 g/dL (32-36)
[2018-07-23] MEDS: HYDROmorphone INJ 1 MG/ML SYRINGE IV PRN (20:52)
[2018-07-23 20:59] LABS: Albumin Globulin Ratio 0.6 (0.9-2); Albumin Level 2.6 gm/dl (3.4-5.0); BUN Creatinine Ratio 32.1 (10-20); Bilirubin,Total 0.3 mg/dl (0.2-1); Calcium 12.6 mg/dl (8.5-10.1); Est GFR (African American) 76.8; Est GFR (Non-African American) 66.3; Globulin 4.7 gm/dl (2.5-4.0); Total Protein 7.3 gm/dl (6.4-8.2)
[2018-07-23] MEDS ORDERED: PAMIDRONATE DISODIUM 60 MG in SODIUM CHLORIDE 0.9% 1000ML 1,000 ML IV SCH (21:10)
[2018-07-23] MEDS: SODIUM CHLORIDE 0.9% 1000ML 1,000 ML IV SCH (21:50)
[2018-07-23] MEDS ORDERED: ONDANSETRON INJ 2 MG/ML 2 ML VIAL IV PRN (23:00)
[2018-07-23] MEDS ORDERED: PIPERACILL/TAZOBAC CONSULT ACTIVE PRN (23:27)
[2018-07-24] MEDS ORDERED: PIPERACILLIN/TAZOBACTAM 3.375 GM in DEXTROSE 5% 100 ML IV SCH
[2018-07-24] MEDS ORDERED: CHECK FENTANYL PATCH PLACEMENT SCH
[2018-07-24] MEDS: SODIUM CHLORIDE 0.9% 1000ML 1,000 ML IV SCH ×6 (01:59→22:14)
[2018-07-24] MEDS: HYDROmorphone INJ 1 MG/ML SYRINGE IV PRN ×3 (02:31→12:42)
[2018-07-24] MEDS: PIPERACILLIN/TAZOBACTAM 3.375 GM in DEXTROSE 5% 100 ML IV SCH ×3 (04:38→20:13)
[2018-07-24] MEDS: LEVOTHYROXINE SODIUM 150 MCG TABLET PO SCH (06:08)
--- NOTE | 2018-07-24 07:54 | Hospitalist Progress Note ---
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 He communicates with the right writing got dry erase board. He did permit us to change his trach and trach collar it was fairly crusted. There is some granulomatous tissue surrounding it. Patient keeps stating that he wants to wait for his girlfriend to arrive before making any other decisions about his care he is not having reduced amounts of sputum production currently Review of Systems ROS: Very thin and ill-appearing No double vision blurry vision Cannot speak due to his laryngectomy has a tracheostomy No palpitations, chest pain or pressure Did have some issues when his trach was having mucus collection No abdominal pain nausea vomiting diarrhea does have a PEG tube No burning urine urine frequency or changes in color No focal joint pain or muscle pain No skin rashes has some skin irritation around his tracheostomy No unusual bruising or bleeding No focused back pain or numbness or loss of strength Physical Exam 2 Vital Signs (Past 24 Hours): Last Vital Signs Temp 36.3 C L 07/24/18 07:31 Pulse 68 07/24/18 07:31 Resp 18 07/24/18 07:31 BP 93/86 L 07/24/18 07:31 Pulse Ox 92 07/24/18 07:31 The patient appeared moderate distress chronically ill very thin Vital signs as documented. Head exam is unremarkable. normocephalic, atraumatic Neck is achy ostomy is in place is crusted with a brown secretions there is a large tissue mass to the inferior right side of it with some necrotic tissue surrounding it Lungs are clear to auscultation chest wall is tender to likely with metastatic disease Cardiac exam reveals Rhythm is regular. First and second heart sounds normal. Abdominal exam reveals normal bowel sounds, G-tube site in place Extremities are nonedematous and both pedal pulses are present Neurologic exam is A&Ox3, patient cannot speak uses a dry erase board to indicate Psychologically seems withdrawn and depressed Skin is warm Dry
[2018-07-24] MEDS: SERTRALINE HCL 50 MG TABLET PO SCH (08:00)
[2018-07-24 08:55] LABS: BUN Creatinine Ratio 29.2 (10-20); Calcium 10.9 mg/dl (8.5-10.1); Creatinine Clr Calc Pharmacy 45.7 ml/min; Est GFR (African American) 91.3; Est GFR (Non-African American) 78.8; Potassium 3.8 mmol/L (3.5-5.1)
[2018-07-24 09:05] LABS: Albumin Globulin Ratio 0.5 (0.9-2); Bilirubin,Total 0.3 mg/dl (0.2-1)
[2018-07-24 13:01] LABS: Appearance Urine Clear (Clear); Bilirubin Urine Negative (Negative); Blood Urine Negative (Negative); Color Urine Yellow; Glucose Urine UA Negative (Negative); Ketones Urine Negative (Negative); Leukocyte Esterase Urine Negative (Negative); Nitrite Urine Negative (Negative); Protein Urine Negative (Negative); Specific Gravity Urine 1.018 (1.000-1.030); Urobilinogen Urine Negative (Negative)
--- NOTE | 2018-07-24 14:31 | Palliative Care Consultation ---
Date of Consultation July 24, 2018 Assessment & Plan (1) Palliative care encounter: Patient seen and examined with his significant other at bedside. Patient is a 57-year-old gentleman with a history of laryngeal cancer diagnosed in May 2016 when he presented with airway obstruction. Patient had a tracheostomy placed and soon after underwent resection of the neck. Patient has undergone XRT and chemo and was in remission. Patient presented with metastatic disease and was again treated with immunotherapy, disease continues to progress-he was seen by oncology who has no further treatment options to offer. Patient presented to the ER on 07/23 for increased rib and back pain-these are the sites of his bony metastases. He was also found to have a left lower lobe pneumonia and is on IV antibiotics. Patient also has an elevated calcium due to bony metastases. Past medical history is significant for failure to thrive, dysphasia, hypothyroidism, anemia, depression and malnutrition due to poor p.o. intake. CT scans on 07/17 showed increase in the soft tissue mass in the supra glottic area, new metastases to the left ribs, pathological fracture rib #6. Positive emphysema. Increased size in the left upper lobe cavitary lesion. Positive evidence for aspiration pneumonitis. Left lower lobe segmental bronchus opacification. Metastatic disease to the T and L-spine. Patient had been placed on a fentanyl patch at 25 mcg for pain-pain was not well controlled and fentanyl patch was increased to 50 mcg. Patient had increased sedation and did not tolerate fentanyl patches. Patient with very little subcu fat which will affect the absorption of fentanyl. Patient had been using as needed Vicodin at home for pain. Patient was placed on PRN IV Dilaudid on admission-he has used 4 mg in the past 12 hours for comfort- extrapolating to requiring 8 mg in a 24-hour. Would give the approximate morphine oral equivalent of 160 mg per 24 hours. At this dose methadone at 5 mg 3 times daily should be able to control the majority of his pain. Can continue as needed hydrocodone or switch to sublingual Roxanol for breakthrough pain. Would start Decadron at 4 mg daily for bone pain-we will need to monitor GI symptoms given poor p.o. intake. Discussed at length with both patient and significant other using methadone for pain control as this will not cause sedation, can be titrated as pain increases due to disease progression. Patient wishes to return home [facility]-patient and significant other wanting to meet with a hospice agency for hospice care at home. -Cancer related pain-start methadone 5 mg 3 times daily, transition to sublingual Roxanol for breakthrough pain -Dysphasia-patient able to take liquids, able to eat some soft foods, likely having repeated aspiration -Bone pain-due to metastatic disease-if patient can maintain adequate p.o. intake start Decadron 4 mg once daily -Laryngeal cancer-disease progression on chemo-no further treatment options offered. Patient and significant other to meet with hospice (2) Malignant neoplasm of glottis: Disease progression on chemotherapy-no further treatments offered. Transition to hospice care (3) Dysphagia: Aspiration precautions, allow comfort feeds (4) Secondary malignant neoplasm of bone: Start Decadron 4 mg daily, monitor for gastritis-we will need to stop Decadron if gastritis symptoms develop (5) Cancer related pain: Start methadone 5 mg 3 times daily, PRN Roxanol for breakthrough pain History of Present Illness Reason for Consultation: Palliative encounter, assist with pain control Requesting Physician: Dr. Andrea Encarnacion Attending Physician: Shashank Espino MD History of Present Illness Patient seen and examined with his significant other at bedside. Patient is a 57-year-old gentleman with a history of laryngeal cancer diagnosed in May 2016 when he presented with airway obstruction. Patient had a tracheostomy placed and soon after underwent resection of the neck. Patient has undergone XRT and chemo and was in remission. Patient presented with metastatic disease and was again treated with immunotherapy, disease continues to progress-he was seen by oncology who has no further treatment options to offer. Patient presented to the ER on 07/23 for increased rib and back pain-these are the sites of his bony metastases. He was also found to have a left lower lobe pneumonia and is on IV antibiotics. Patient also has an elevated calcium due to bony metastases. Past medical history is significant for failure to thrive, dysphasia, hypothyroidism, anemia, depression and malnutrition due to poor p.o. intake. CT scans on 07/17 showed increase in the soft tissue mass in the supra glottic area, new metastases to the left ribs, pathological fracture rib #6. Positive emphysema. Increased size in the left upper lobe cavitary lesion. Positive evidence for aspiration pneumonitis. Left lower lobe segmental bronchus opacification. Metastatic disease to the T and L-spine. Patient had been placed on a fentanyl patch at 25 mcg for pain-pain was not well controlled and fentanyl patch was increased to 50 mcg. Patient had increased sedation and did not tolerate fentanyl patches. Patient with very little subcu fat which will affect the absorption of fentanyl. Patient had been using as needed Vicodin at home for pain. Patient was placed on PRN IV Dilaudid on admission-he has used 4 mg in the past 12 hours for comfort- extrapolating to requiring 8 mg in a 24-hour. Would give the approximate morphine oral equivalent of 160 mg per 24 hours. At this dose methadone at 5 mg 3 times daily should be able to control the majority of his pain. Can continue as needed hydrocodone or switch to sublingual Roxanol for breakthrough pain. Would start Decadron at 4 mg daily for bone pain-we will need to monitor GI symptoms given poor p.o. intake. Discussed at length with both patient and significant other using methadone for pain control as this will not cause sedation, can be titrated as pain increases due to disease progression. Patient wishes to return home [facility]-patient and significant other wanting to meet with a hospice agency for hospice care at home. Allergies Allergy/AdvReac Type Severity Reaction Status Date / Time cetuximab AdvReac Severe infusion Verified 07/23/18 16:55 reaction; itching, hypotension, resp. distress Home Medications Home Medications Medication Instructions Recorded Confirmed Type Medical Marijuana PRN 07/23/18 History hydrocodone-acetaminophen 1 tab PO Q4 PRN 07/23/18 07/23/18 History levothyroxine 150 mcg PO DAILY 07/23/18 07/23/18 History sertraline 50 mg PO DAILY 07/23/18 07/23/18 History Patient History Medical History Laryngeal cancer Severe malnutrition Anemia (Acute) Anxiety (Acute) Cancer (Acute) Chronic obstructive pulmonary disease (Acute) Depression (Acute) Hearing deficit (Acute) Hypothyroidism (Acute) Malnutrition of moderate degree (Acute) Presence of tracheostomy (Acute) Recent weight loss (Acute) Weight loss, unintentional (Acute) Surgical History History of appendectomy (Acute) History of hernia repair (Acute) History of tracheostomy (Acute) Family History Other HTN (hypertension) Social History Current Living Situation: Significant Other Current Living Situation Comment: girlfriend Other Information That Helps Us Care for You: No Feels Safe at Home: Yes Smoking Status: Former smoker Hx Alcohol Use: No Hx Substance Use: No Beliefs That Will Affect Care: None Preferred Language: [place] Communication Ability: Effective Review of Systems Constitutional: + weight loss Eyes: no problem reported Dysphasia, trach in place Respiratory: + dyspnea on exertion Cardiovascular: no edema Gastrointestinal: + dysphagia Musculoskeletal: + muscle atrophy Integumentary: + skin ulcer Neurologic: + generalized weakness History of depression-on Zoloft Hypothyroid Anemia Physical Exam 2 Vital Signs (Past 24 Hours): Last Vital Signs Temp 36.3 C L 07/24/18 07:31 Pulse 68 07/24/18 07:31 Resp 18 07/24/18 07:31 BP 93/86 L 07/24/18 07:31 Pulse Ox 92 07/24/18 07:31 Constitutional: Cachectic Eyes: EOMI ENMT: Tracheostomy in place Respiratory: Unlabored at rest, equal breath sounds Cardiovascular: Regular rate, no edema Gastrointestinal (Abdomen): Soft, nontender Musculoskeletal: Pain in ribs on left Skin: Positive skin color changes Neurologic: Alert and oriented Time Spent Attending Total time spent 70 minutes with greater than 50% of the time spent at bedside discussing treatment options, pharmacokinetics of methadone, as well as goals of care
[2018-07-24] MEDS: METHADONE HCL 5 MG TAB PO SCH ×2 (14:40→22:08)
[2018-07-24] MEDS: HYDROmorphone INJ 0.5 MG/0.5 ML SYR IV PRN (17:13)
[2018-07-25] MEDS: SODIUM CHLORIDE 0.9% 1000ML 1,000 ML IV SCH ×6 (02:47→19:55)
[2018-07-25] MEDS: HYDROmorphone INJ 0.5 MG/0.5 ML SYR IV PRN ×2 (03:28→17:18)
[2018-07-25] MEDS: PIPERACILLIN/TAZOBACTAM 3.375 GM in DEXTROSE 5% 100 ML IV SCH ×3 (04:35→19:55)
[2018-07-25] MEDS: METHADONE HCL 5 MG TAB PO SCH ×3 (05:28→21:42)
[2018-07-25] MEDS: LEVOTHYROXINE SODIUM 150 MCG TABLET PO SCH (05:28)
[2018-07-25] MEDS: SERTRALINE HCL 50 MG TABLET PO SCH (08:22)
[2018-07-25] MEDS: dexAMETHasone 4 MG TAB PO SCH (08:22)
--- NOTE | 2018-07-25 13:32 | Hospitalist Progress Note ---
Date of Service July 25, 2018 Assessment & Plan (1) Laryngeal cancer: metastases to bone, lung, locally at the site severe pain, muscle wasting, failure to thrive, hypercalcemia, hypercalcemia has improved consult palliative has adjusted his pain control adding methadone reducing Dilaudid and filling out a pulsed form (2) Pneumonia: left lower lobe, Zosyn initially, could change to Augmentin on discharge if patient wishes to continue antibiotics (3) Hypercalcemia: due to bony mets Pamidronate ordered, hydration Calcium is reduced mental status has improved (4) Recent weight loss: due to cancer, poor intake, failure to thrive (5) Hypothyroidism: continue Synthroid (6) Anemia: Hb 9, continue to monitor (7) Depression: on Zoloft (8) Severe malnutrition: see above, patient has been refusing G-tube feeding is to continue to try to take oral feeds (9) End of life care: Patient significant other has marked anxiety about taking the patient home to . The patient has voices which is by writing that he wishes to go home. We are attempting to coordinate hospice service for in-home care. Because of the location where they live we had some challenges but it looks to be that we will try to set this up in the next few days Subjective This patient is about the same he appears to be more withdrawn. His significant other is at the bedside and she is voice is a request to have hospice in place. There is some physical barriers at the home including no ramp to the door in the driveway has not applied this winter patient himself offers no complaints although he looks uncomfortable Review of Systems All systems reviewed & are unremarkable except as noted in HPI & below Patient nods his head no to many questions he does have significant issues with having to eat slowly he states his pain is about a 5/10 diffusely Physical Exam 2 Vital Signs (Past 24 Hours): Last Vital Signs Temp 36.4 C L 07/25/18 12:05 Pulse 101 H 07/25/18 12:05 Resp 15 07/25/18 12:05 BP 92/61 L 07/25/18 12:05 Pulse Ox 93 07/25/18 12:05 The patient appeared thin and chronically ill Vital signs as documented. Head exam is unremarkable. normocephalic, atraumatic Neck is with tracheostomy, significant nodular tissue towards the right side of his neck, Lungs are clear to auscultation and percussion. Chest wall is tender to touch due to the metastatic disease to his ribs Cardiac exam reveals Rhythm is regular. First and second heart sounds normal. Abdominal exam reveals normal bowel sounds, no masses, no organomegaly PEG tube is in place Extremities are nonedematous and both pedal pulses are present Psychologically seems withdrawn and depressed
[2018-07-26] MEDS: SODIUM CHLORIDE 0.9% 1000ML 1,000 ML IV SCH ×6 (00:02→20:33)
[2018-07-26] MEDS: HYDROmorphone INJ 0.5 MG/0.5 ML SYR IV PRN (01:40)
[2018-07-26] MEDS: PIPERACILLIN/TAZOBACTAM 3.375 GM in DEXTROSE 5% 100 ML IV SCH ×3 (04:40→19:49)
[2018-07-26] MEDS: METHADONE HCL 5 MG TAB PO SCH ×3 (05:45→21:39)
[2018-07-26] MEDS: LEVOTHYROXINE SODIUM 150 MCG TABLET PO SCH (05:45)
[2018-07-26 08:01] LABS: Creatinine Clr Calc Pharmacy 71.6 ml/min; Est GFR (African American) 115.9
[2018-07-26] MEDS: SERTRALINE HCL 50 MG TABLET PO SCH (08:44)
[2018-07-26] MEDS: dexAMETHasone 4 MG TAB PO SCH (08:44)
--- NOTE | 2018-07-26 14:03 | Hospitalist Progress Note ---
Date of Service July 26, 2018 Assessment & Plan (1) Laryngeal cancer: metastases to bone, lung, locally at the site severe pain, muscle wasting, failure to thrive, hypercalcemia has improved consult palliative has adjusted his pain control adding methadone reducing Dilaudid and filling out a POLST (2) Pneumonia: left lower lobe, Zosyn initially, could change to Augmentin on discharge if patient wishes to continue antibiotics (3) Hypercalcemia: due to bony mets Pamidronate, hydration with good improvement Calcium is reduced mental status has improved (4) Recent weight loss: due to cancer, poor intake, failure to thrive (5) Hypothyroidism: continue Synthroid (6) Anemia: anemia of chronic disease (7) Depression: on Zoloft (8) Severe malnutrition: see above, patient has been refusing G-tube feeding is to continue to try to take oral feeds (9) End of life care: Patient significant continues to have anxiety about taking the patient home to . The patient has voiced, which is by writing, that he wishes to go home. We are attempting to coordinate hospice service for in-home care. Because of the location where they live we had some challenges but it looks to be that we will try to set this up in the next few days Subjective This patient is about the samethi07/26, he continues to appear withdrawn. We are awaiting case managemnent to have hospice in place for him to return to home. He appears comfortable Constitutional: + weight loss Respiratory: + cough, + dyspnea and + dyspnea on exertion Cardiovascular: + chest pain (from rib metastasis, only with movement or examination) Musculoskeletal: + joint pain (diffuse pain in bones, due to mets) Psychiatric: + depression and + hopelessness Physical Exam 2 Vital Signs (Past 24 Hours): Last Vital Signs Temp 36.4 C L 07/26/18 11:51 Pulse 58 L 07/26/18 11:51 Resp 20 07/26/18 11:51 BP 93/66 L 07/26/18 11:51 Pulse Ox 96 07/26/18 11:51 The patient appeared chronically ill and nutritionally challenged Vital signs as documented. Head exam is unremarkable. normocephalic, atraumatic Neck is withtracheostomy in place, soft tissue mass likely malignant and some slouging of tissue Lungs are coarse to ausculation Cardiac exam reveals Rhythm is regular. First and second heart sounds normal. Abdominal exam reveals normal bowel sounds, no masses, no organomegaly, g tube place Extremities are nonedematous and both pedal pulses are present Neurologic exam is A&Ox3 Psychologically seems depressed
[2018-07-27] MEDS: SODIUM CHLORIDE 0.9% 1000ML 1,000 ML IV SCH ×6 (00:39→20:25)
[2018-07-27] MEDS: PIPERACILLIN/TAZOBACTAM 3.375 GM in DEXTROSE 5% 100 ML IV SCH ×3 (03:42→19:29)
[2018-07-27] MEDS: METHADONE HCL 5 MG TAB PO SCH ×3 (06:04→21:02)
[2018-07-27] MEDS: LEVOTHYROXINE SODIUM 150 MCG TABLET PO SCH (06:05)
[2018-07-27] MEDS: dexAMETHasone 4 MG TAB PO SCH (08:13)
[2018-07-27] MEDS: SERTRALINE HCL 50 MG TABLET PO SCH (08:14)
[2018-07-27 10:15] LABS: Creatinine Clr Calc Pharmacy 63.4 ml/min; Est GFR (African American) 110.3; Est GFR (Non-African American) 95.1
--- NOTE | 2018-07-27 14:18 | Palliative Care Progress Note ---
Date of Service July 27, 2018 Assessment & Plan (1) Palliative care encounter: Patient seen and examined, no family at bedside Patient is a 57-year-old gentleman with a history of laryngeal cancer diagnosed in May 2016 when he presented with airway obstruction. Patient had a tracheostomy placed and soon after underwent resection of the neck. Patient has undergone XRT and chemo and was in remission. Patient presented with metastatic disease and was again treated with immunotherapy, disease continues to progress-he was seen by oncology who has no further treatment options to offer. Patient presented to the ER on 07/23 for increased rib and back pain-these are the sites of his bony metastases. He was also found to have a left lower lobe pneumonia and is on IV antibiotics. Patient also has an elevated calcium due to bony metastases. Past medical history is significant for failure to thrive, dysphasia, hypothyroidism, anemia, depression and malnutrition due to poor p.o. intake. CT scans on 07/17 showed increase in the soft tissue mass in the supra glottic area, new metastases to the left ribs, pathological fracture rib #6. Positive emphysema. Increased size in the left upper lobe cavitary lesion. Positive evidence for aspiration pneumonitis. Left lower lobe segmental bronchus opacification. Metastatic disease to the T and L-spine. Patient had been placed on a fentanyl patch at 25 mcg for pain-pain was not well controlled and fentanyl patch was increased to 50 mcg. Patient had increased sedation and did not tolerate fentanyl patches. Patient with very little subQ fat which will affect the absorption of fentanyl. Patient was placed on PRN IV Dilaudid on admission, he was started on methadone at 5 mg 3 times daily and received 2 doses on 07/24-he has received 3 full days of methadone with improved pain control-he has not required any as needed pain medications for breakthrough pain. Can continue as needed hydrocodone or switch to sublingual Roxanol for breakthrough pain when discharged home. Would start Decadron at 4 mg daily for bone pain-we will need to monitor GI symptoms given poor p.o. intake. Discussed at with patient that the methadone has not yet reached steady state and his pain control will continue to improve over the next 3-4 days. -Cancer related pain-start methadone 5 mg 3 times daily, transition to sublingual Roxanol for breakthrough pain -Dysphasia-patient able to take liquids, able to eat some soft foods, likely having repeated aspiration -Bone pain-due to metastatic disease-if patient can maintain adequate p.o. intake start Decadron 4 mg once daily -Laryngeal cancer-disease progression on chemo-no further treatment options offered. -Plan is for discharge home under hospice care (2) Malignant neoplasm of glottis: Disease progression on chemotherapy-no further treatments offered. Transition to hospice care (3) Dysphagia: Aspiration precautions, allow comfort feeds (4) Secondary malignant neoplasm of bone: Start Decadron 4 mg daily, monitor for gastritis-we will need to stop Decadron if gastritis symptoms develop (5) Cancer related pain: Start methadone 5 mg 3 times daily, PRN Roxanol for breakthrough pain Subjective Patient seen and examined-no family at bedside. Patient awake alert, no acute distress. Patient states his pain control has markedly improved-patient has not received a PRN dose of Dilaudid since 07/26 at 0140. Discussed with patient that he is only completed 3 full days of methadone-his pain control will continue to improve until it reaches steady state on day 7. Plan is to discharge home with hospice-hospice can adjust methadone as needed. Review of Systems Patient denies fever, chills, chest pain, increased shortness of breath, or abdominal pain. Physical Exam 2 Vital Signs (Past 24 Hours): Last Vital Signs Temp 36.4 C L 07/27/18 11:53 Pulse 64 07/27/18 11:53 Resp 16 07/27/18 11:53 BP 106/67 07/27/18 11:53 Pulse Ox 93 07/27/18 11:53 Physical Exam: PE: No acute distress HEENT: EOMI, normal hearing Neck: Trach in place Respirations: Unlabored CV: Regular rate, no edema Abdomen: Not distended Neuro: Alert and oriented Time Spent Attending Total time spent 35 minutes with greater than 50% of the time spent at bedside discussing pain control, developing a plan of care, and assessing patient's pain management.
[2018-07-27] MEDS: HYDROmorphone INJ 0.5 MG/0.5 ML SYR IV PRN ×2 (16:32→19:29)
--- NOTE | 2018-07-27 22:03 | Hospitalist Progress Note ---
Date of Service July 27, 2018 Assessment & Plan (1) Laryngeal cancer: metastases to bone, lung, locally at the site severe pain, muscle wasting, failure to thrive, hypercalcemia has improved consult palliative has adjusted his pain control adding methadone reducing Dilaudid and filling out a POLST Plan is for patient ot be discharged tomorrow on home hospice. Case management is working on arranging this. (2) Pneumonia: left lower lobe, Zosyn initially, could change to Augmentin on discharge if patient wishes to continue antibiotics. will likely complete anitbioitcs on discharge. (3) Hypercalcemia: due to bony mets Pamidronate, hydration with good improvement Calcium is reduced mental status has improved (4) Recent weight loss: due to cancer, poor intake, failure to thrive (5) Hypothyroidism: continue Synthroid (6) Anemia: anemia of chronic disease (7) Depression: on Zoloft (8) Severe malnutrition: see above, patient has been refusing G-tube feeding is to continue to try to take oral feeds (9) End of life care: Patient significant continues to have anxiety about taking the patient home to . The patient has voiced, which is by writing, that he wishes to go home. We are attempting to coordinate hospice service for in-home care. It appears this will be set up for Friday 07/28 Spent 35 minutes in management of patient. This included discussing with , case management, patient, and consultants, well as reviewing records. Subjective Patient appears comfortable today. He is non verbal, but does answer yes and no questions He states he has no complaints and he is tolerating his diet. Constitutional: + weight loss Respiratory: + cough, + dyspnea and + dyspnea on exertion Cardiovascular: + chest pain (from rib metastasis, only with movement or examination) Musculoskeletal: + joint pain (diffuse pain in bones, due to mets) Psychiatric: + depression and + hopelessness Physical Exam 2 Vital Signs (Past 24 Hours): Last Vital Signs Temp 36.4 C L 07/27/18 19:00 Pulse 63 07/27/18 19:00 Resp 19 07/27/18 19:00 BP 122/77 07/27/18 19:00 Pulse Ox 83 L 07/27/18 19:00 Physical Exam: The patient continues to look chronically ill and nutritionally challenged Vital signs as documented. Head exam is unremarkable. normocephalic, atraumatic Neck is with tracheostomy in place, soft tissue mass likely malignant. Lungs are coarse to ausculation Cardiac exam reveals Rhythm is regular. First and second heart sounds normal. Abdominal exam reveals normal bowel sounds, no masses, no organomegaly, g tube place Extremities are nonedematous and both pedal pulses are present Neurologic exam is A&Ox3
[2018-07-28] MEDS: SODIUM CHLORIDE 0.9% 1000ML 1,000 ML IV SCH ×4 (00:20→11:40)
[2018-07-28] MEDS: HYDROmorphone INJ 0.5 MG/0.5 ML SYR IV PRN ×3 (02:19→11:40)
[2018-07-28] MEDS: PIPERACILLIN/TAZOBACTAM 3.375 GM in DEXTROSE 5% 100 ML IV SCH ×2 (03:45→11:42)
[2018-07-28] MEDS: LEVOTHYROXINE SODIUM 150 MCG TABLET PO SCH (05:19)
[2018-07-28] MEDS: METHADONE HCL 5 MG TAB PO SCH ×2 (05:19→14:07)
[2018-07-28] MEDS: dexAMETHasone 4 MG TAB PO SCH (07:34)
[2018-07-28] MEDS: SERTRALINE HCL 50 MG TABLET PO SCH (07:35)
[2018-07-28] MEDS ORDERED: METHADONE HCL 5 MG TAB PO SCH ×2 (14:00→21:00)
--- NOTE | 2018-07-28 16:51 | Palliative Care Progress Note ---
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 Patient had a tracheostomy placed and soon after underwent resection of the neck. Patient has undergone XRT and chemo and was in remission. Patient presented with metastatic disease and was again treated with immunotherapy, disease continues to progress-he was seen by oncology who has no further treatment options to offer. Patient presented to the ER on 07/23 for increased rib and back pain-these are the sites of his bony metastases. He was also found to have a left lower lobe pneumonia and was placed on IV antibiotics. Patient also has an elevated calcium due to bony metastases. Past medical history is significant for failure to thrive, dysphasia, hypothyroidism, anemia, depression and malnutrition due to poor p.o. intake. CT scans on 07/17 showed increase in the soft tissue mass in the supra glottic area, new metastases to the left ribs, pathological fracture rib #6. Positive emphysema. Increased size in the left upper lobe cavitary lesion. Positive evidence for aspiration pneumonitis. Left lower lobe segmental bronchus opacification. Metastatic disease to the T and L-spine. Patient had been placed on a fentanyl patch at 25 mcg for pain-pain was not well controlled and fentanyl patch was increased to 50 mcg. Patient had increased sedation and did not tolerate fentanyl patches. Patient with very little subQ fat which will affect the absorption of fentanyl. Patient was placed on PRN IV Dilaudid on admission, he was started on methadone at 5 mg 3 times daily and received 2 doses on 07/24-he has now received 5 full days of methadone with improved pain control-he required 5 doses of 0.5 mg Dilaudid IV which is the morphine oral equivalent of 50 mg oral morphine equivalent, patient discharged with prescription for as needed sublingual Roxanol for breakthrough pain. Cont Decadron at 4 mg daily for bone pain-we will need to monitor GI symptoms given poor p.o. intake. Discussed at with patient that the methadone has almost reached steady state and his pain control will continue to improve few days. -Cancer related pain-start methadone 5 mg 3 times daily, transition to sublingual Roxanol for breakthrough pain -Dysphasia-patient able to take liquids, able to eat some soft foods, likely having repeated aspiration -Bone pain-due to metastatic disease-if patient can maintain adequate p.o. intake started on Decadron 4 mg once daily -Laryngeal cancer-disease progression on chemo-no further treatment options offered. -Plan is for discharge home under hospice care (2) Malignant neoplasm of glottis: Disease progression on chemotherapy-no further treatments offered. Transition to hospice care (3) Dysphagia: Aspiration precautions, allow comfort feeds (4) Secondary malignant neoplasm of bone: Cont Decadron 4 mg daily, monitor for gastritis-we will need to stop Decadron if gastritis symptoms develop (5) Cancer related pain: On methadone 5 mg 3 times daily, PRN Roxanol for breakthrough pain. Hospice can further titrate the methadone if needed Subjective Patient seen and examined, significant other at bedside. Patient states his pain is adequately controlled-patient required 5 doses of 0.5 mg IV Dilaudid and 24 hours-oral morphine equivalent is approximately 50 mg in 24 hours. Collaborated with pharmacy, case management as well as family regarding patient' s discharge meds. Patient will be discharged home with 18 tablets of 5 mg methadone until hospice pharmacy can obtain meds. Also sent home with prescription for Roxanol. Provided support to patient's significant other regarding her anxiety and continue to care for him knowing that he will decline. Patient denies fever, chills, increased shortness of breath, or GI issues, states his pain is well controlled. Patient's methadone has not yet reached steady state so pain control will continue to improve. Physical Exam 2 Vital Signs (Past 24 Hours): Last Vital Signs Temp 36.3 C L 07/28/18 11:22 Pulse 68 07/28/18 11:22 Resp 16 07/28/18 11:22 BP 115/71 07/28/18 11:22 Pulse Ox 92 07/28/18 11:22 Physical Exam: PE: No acute distress HEENT: EOMI, normal hearing Neck: Trach in place, visible tumor lateral to trach site Respiratory: Unlabored CV: Regular rate, no edema Abdomen: Not distended Neuro: Alert and oriented x4 Time Spent Attending Total time spent 40 minutes with greater than 50% of the time spent at bedside as well as collaborating with pharmacy and case management regarding patient's pain med prescriptions. Provided support to patient's significant other.
--- NOTE | 2018-08-02 23:23 | Discharge Summary ---
Date of Service Jul 28, 2018 Admission HPI Per Admitting Provider 57 yo male with end stage laryngeal cancer, sent to the ED by Dr. Field because he is no longer responding to immune therapy for his laryngeal cancer. The patient was diagnosed with laryngeal cancer at the end of 2015, a little over 2 years ago. At the time of his presentation he could barely breathe due to compromise of his airway from the cancer. He underwent emergent tracheostomy for airway protection. He then underwent surgical resection with ENT and underwent radiation therapy. The radiation was followed by combination of radiation and chemotherapy. He was doing well for a short period but the malignancy returned and he underwent further chemo radiation. He again achieved some remission but then the cancer returned in his bones. He was treated with immune mediated therapy. On his visit today with Dr. Field he told the patient and his partner that he has run out of options, he is not responding to the latest treatment and he should change course, focus on comfort, hospice. The patient and his partner are in agreement. All of the history was taken from the patient's partner Mariambrendan Doyle at the bedside. The patient can communicate by writing on white board but he deferred to Mariam to answer questions. She says that the past few weeks have been especially difficult. The patient is in constant pain. He was prescribed Fentanyl patch 25mcg, it was not working. Dr. Field told him to take two patches but that caused him to sleep for 13 straight hours and the patient did not like this, so he stopped using the Fentanyl. For pain control he will crush up two 10/325mg Percocet, take the crushed up pills with milk. His pain relief is suboptimal. He has a difficult time eating anything solid, has been trying mashed potatoes with gravy. He has a PEG but does not use it. He will actually drink the tube feeds that he is sent. His weight has steadily dropped. He has muscle wasting, clear signs of failure to thrive. Discussed transitioning to hospice with patient and Mariam, they agree with palliative care consult. Would like to pursue hospice at home. Principal Diagnosis laryngeal cancer Discharge Exam The patient continues to look chronically ill and nutritionally challenged Vital signs as documented. Head exam is unremarkable. normocephalic, atraumatic Neck is with tracheostomy in place, soft tissue mass likely malignant. Lungs are coarse to ausculation Cardiac exam reveals Rhythm is regular. First and second heart sounds normal. Abdominal exam reveals normal bowel sounds, no masses, no organomegaly, g tube place Extremities are nonedematous and both pedal pulses are present Neurologic exam is A&Ox3 Discharge Data Allergies Allergy/AdvReac Type Severity Reaction Status Date / Time cetuximab AdvReac Severe infusion Verified 07/23/18 16:55 reaction; itching, hypotension, resp. distress Consultations 07/23/18 16:43 ED Decision to Admit Stat 07/23/18 20:25 Consult Case Management - Discharge Planning Routine Consult Palliative Care Stat Hospital Course (1) Laryngeal cancer: metastases to bone, lung, locally at the site severe pain, muscle wasting, failure to thrive, hypercalcemia has improved consult palliative has adjusted his pain control adding methadone reducing Dilaudid and filling out a POLST Will discharge to home hospice (2) Pneumonia: left lower lobe, Zosyn initially, could change to Augmentin on discharge if patient wishes to continue antibiotics. will likely complete anitbioitcs on discharge. (3) Hypercalcemia: due to bony mets Pamidronate, hydration with good improvement Calcium is reduced mental status has improved (4) Recent weight loss: due to cancer, poor intake, failure to thrive (5) Hypothyroidism: continue Synthroid (6) Anemia: anemia of chronic disease (7) Depression: on Zoloft (8) Severe malnutrition: see above, patient has been refusing G-tube feeding is to continue to try to take oral feeds (9) End of life care: Patient significant continues to have anxiety about taking the patient home to . The patient has voiced, which is by writing, that he wishes to go home. We are attempting to coordinate hospice service for in-home care. Total Time Total Time Spent Total Time Spent (In Minutes): 32 Total Time Includes: Examination of the Patient, Discharge Planning and Medication Reconciliation Discharge Plan Discharge Items Patient Disposition: Hospice - Home Reason For Visit: FAILURE TO THRIVE,LARYNGEAL CANCER Discharge Diagnosis: Failure to thrive, laryngeal cancer. Discharge Goals: Decrease discomfort Activity: As commented below Activity Comment: activity as tolerated; Non-emergency contact: Primary Care Provider and Specialist Call non-emergency contact if: you have any medication questions and your pain is concerning for you Diet: Full liquid Addtl Provider Instructions: Patient will be discharged to home hospice. Will place patient on dexamethasone for failure to thrive. Please be on the lookout for signs of gastritis, for example pain in the upper abdomen or burning after eating. If this starts need to stop dexamethasone. Ordered methadone every 8 hours. If patient has break through pain, patient can also received mrophine but only as needed. Prescriptions: New methadone 5 mg Tablet 5 mg PO Q8 Qty: 21 RF: 0 dexamethasone 4 mg Tablet 4 mg PO QAM Qty: 10 RF: 0 morphine 20 mg/5 mL (4 mg/mL) solution 10 mg BUCCAL Q6H PRN (Reason: pain) Qty: 100 RF: 0 ranitidine HCl 150 mg capsule 150 mg PO BID Qty: 60 RF: 0 amoxicillin-pot clavulanate [Augmentin] 875-125 mg tablet 1 tab PO BID Qty: 4 RF: 0 Continued Medical Marijuana PRN (Reason: Unknown) RF: 0 levothyroxine 150 mcg tablet 150 mcg PO DAILY Qty: 30 RF: 0 sertraline 50 mg tablet 50 mg PO DAILY Qty: 30 RF: 0 Discontinued hydrocodone-acetaminophen 10-325 mg tablet 1 tab PO Q4 PRN (Reason: Pain) RF: 0 Stand-Alone Forms: [facility] Discharge Orders: Discharge Order (Routine); Ordered 07/28/18 Ordered By: Fidencio Solis Admission Data Admit Date/Time: 07/23/18 17:32 Attending Provider: Fidencio Solis Admit Provider: Andrea Encarnacion Primary Care Provider: Tyler Floyd Other Providers: Crystal Forrest ; Andrea Encarnacion Service: Oncology Other Interventions: Discharge Summary Assessment (RN) Last Done: 07/28/18 09:55 DC Date/Time DO NOT enter until pt leaves facility: 07/28/18 15:15
== END 2018-07-28 15:15 | disposition hospice, home (50) | DRG 951 ==
LOC: ED 14:45 → SUATTDRO 17:32 → 4E 17:32